=== PATIENT | female | born 1970 | race African-American/Black ===

== ENCOUNTER 2019-08-31 02:07 | Emergency (ER) | payer OTHER, SELFPAY ==
--- NOTE | ~2019-08-31 | XR_ITS ---
EXAMINATION: XR chest 2V 08/31/2019 03:52 INDICATION: Generalized chest pain, shortness of breath and fever. Cough. PROCEDURE: 2 view chest COMPARISON: Comparison to multiple prior studies sequentially, with oldest reviewed study dated 09/15. FINDINGS: The lungs are clear. The cardiomediastinal silhouette is within normal limits. There are no pleural effusions. There is no pneumothorax suspected. IMPRESSION: 1: NO ACUTE CARDIOPULMONARY DISEASE. Reviewed, dictated and finalized at location A.
[2019-08-31 02:15] VITALS: BP 160/74; PULSE 113; RESP 16; TEMP 36.5; O2SAT 100
--- NOTE | 2019-08-31 02:17 | ED.URI ---
HPI - URI/Sore Throat General Chief Complaint: Upper Respiratory Infection Stated Complaint: body aches, dean, cough, congestion Time Seen by Provider: 08/31/19 02:21 Source: patient and RN notes reviewed Mode of arrival: ambulatory Limitations: no limitations History of Present Illness HPI Narrative: A 48 y/o female presents to the ED with multiple URI symptoms beginning yesterday morning. She reports that she been having body aches, a DEAN, a yellow productive cough, lower back pain, leg cramps, SOB, sore throat, ear aches, and CP that radiates into her back since yesterday. She states that she took some Theraflu tonight which seemed to help alleviate her symptoms. 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 She denies any fever, chills, nasal congestion, rhinorrhea, N/V/D, or ABD pain. MD elicited complaint: other (Multiple) Pertinent past history: asthma Onset (ago): day(s) (yesterday) Description of mucous: yellow Relieving factors: OTC cold medicine (Theraflu) Context: sick contacts Associated symptoms: headache, sore throat, cough (yellow productive), chest pain (that radiates into her back), shortness of breath and other (body aches, lower back pain, leg cramps, and ear aches) Treatments prior to arrival: cold medicine (Theraflu) Related Data Allergies Allergy/AdvReac Type Severity Reaction Status Date / Time morphine Allergy Severe Unknown Verified 08/31/19 02:19 Contrast Media Allergy Mild Unknown Uncoded 08/31/19 02:19 Review of Systems Review of Systems: All systems reviewed & are unremarkable except as noted in HPI and below Constitutional: Constitutional: Reports body ache(s), Denies chills and Denies fever(s) ENT: Denies nasal congestion, Denies nasal discharge, Reports sore throat and Reports other (ear aches) Cardiovascular: Cardiovascular: Reports chest pain (that radiates into her back) Respiratory: Respiratory: Reports cough (yellow productive) and Reports dyspnea Gastrointestinal: Gastrointestinal: Denies abdominal pain, Denies diarrhea, Denies nausea and Denies vomiting Musculoskeletal: Musculoskeletal: Reports back pain (lower) and Reports muscle cramps (legs) Neurologic: Reports headache(s) PMFSH Past Medical History Medical History Asthma Surgical History Surgical History History of hysterectomy History of surgery on arm Previous section x3. Social History Social History (Updated 08/31/19 @ 02:33 by Nitin Duran) Smoking status: Never smoker Gender identity (if verbalized by the patient): Female Exam Const: General: cooperative, no acute distress and alert Nutritional Appearance: well nourished Orientation/consciousness: patient oriented x3 Limitations: no limitations HENMT: Mouth: Yes lip normal and Yes moist mucous membranes Resp: Effort & Inspection: normal respiratory effort Auscultation: clear to auscultation bilaterally Cardio: Rate: tachycardic Rhythm: regular rhythm Heart sounds: no murmurs GI: GI Palp: Yes Soft to palpation and No Tenderness to palpation present (GI) Auscultation: normal bowel sounds Skin: General skin exam: normal color Neuro: General: patient oriented x3 Cognition (Neuro): normal cognition Speech: normal speech Extrem: General: normal to inspection, full ROM and no clubbing, cyanosis or edema Psych: Mental Status: mental status grossly normal Affect: normal affect Attitude: cooperative Course Course Emergency Course: Patient feeling better after nebulizer treatment. Discomfort in chest subsided. Patient given IV fluids and Toradol with significant improvement in her symptoms overall. Patient positive for influenza A. No evidence of pneumonia on chest x-ray. No evidence of cardiac cause of patient's symptoms. Will discharge home with Tamiflu and inhaler. Vital Signs Vital signs: Vital Signs T
--- NOTE | 2019-08-31 02:22 | ECG_ITS ---
Measurements Intervals [place] Rate: 101 P: 42 IN: 154 QRS: 24 QRSD: 80 T: -11 QT: 261 QTc: 339 Interpretive Statements SINUS TACHYCARDIA NONSPECIFIC T-WAVE ABNORMALITY- ANT/INF LEADS BASELINE WANDER- V1-V2, V6 BORDERLINE ECG Electronically Signed On 08-31-2019 7:09:49 CDT by Vernon Scruggs D.O.
[2019-08-31] MEDS: LACTATED RINGERS 1,000 ML 999 ML IV CONT (02:31)
[2019-08-31] MEDS: KETOROLAC 30 MG/ML VIAL (*BKC) IV PUSH (02:32)
[2019-08-31 02:55] LABS: Basophils Percent Auto 0.6 % (0.2-1.2); Eosinophils Absolute Auto 0.1 K/mm3 (0-0.3); Eosinophils Percent Auto 1.2 % (0-4.4); Hematocrit 37.1 % (37.0-47.0); Hemoglobin 12.8 g/dL (12.0-15.0); Immature Granulocyte Absolute 0.02 K/mm3 (0.00-0.031); Immature Granulocyte Percent A 0.3 % (0-0.5); Lymphocytes Absolute Auto 0.93 K/mm3 (0.9-3.2); Lymphocytes Percent Auto 13.5 % (18.3-44.2); Mean Corpuscular HGB Conc 34.5 g/dl (32-36); Mean Corpuscular Hemoglobin 29.8 pg (26-34); Mean Corpuscular Volume 86.5 fl (80-100); Mean Platelet Volume 11.6 fl (7.4-10.4); Monocytes Absolute Auto 0.8 K/mm3 (0.1-0.6); Monocytes Percent Auto 11.9 % (2.6-8.5); Neutrophils Percent Auto 72.5 % (45.5-73.1); Platelet Count Result 223 k/mm3 (150-375); Red Blood Count 4.29 M/mm3 (4.2-5.4); Red Cell Distribution Width 12.5 % (11.5-14.5); White Blood Count 6.9 K/mm3 (4.5-10.0)
[2019-08-31 02:58] LABS: Alanine Aminotransferase 16 U/L (4-35); Alkaline Phosphatase 83 U/L (38-126); Aspartate Amino Transferase 21 U/L (14-36); Bilirubin,Total 0.9 mg/dL (0.2-1.3); Blood Urea Nitrogen 8 mg/dL (7-17); Calcium 8.8 mg/dL (8.4-10.2); Carbon Dioxide 22 mmol/L (22-30); Chloride 106 mmol/L (98-107); Estimated Glomerular Filt Rate > 60; Glucose 104 mg/dL (65-105); Potassium 3.3 mmol/L (3.4-5.0); Sodium 138 mmol/L (137-145)
[2019-08-31 03:10] LABS: Troponin I < 0.012 ng/mL (0.000-0.034)
[2019-08-31] MEDS: ALBUTEROL SULFATE NEB 2.5 MG/0.5 ML INH 5 MG INHALATION (03:13)
[2019-08-31 03:14] VITALS: PULSE 83; RESP 18
[2019-08-31] MEDS: IPRATROPIUM BR 0.02% INH SOLN 0.5 MG/2.5 ML VIAL INHALATION (03:14)
[2019-08-31 03:22] VITALS: PULSE 84; RESP 18
[2019-08-31 03:40] VITALS: BP 160/95; PULSE 87; RESP 16; TEMP 37.6; O2SAT 99
--- NOTE | 2019-08-31 04:13 | PC.NURSE ---
RESPIRATORY CALLED CONCERNING SPACER THAT WAS ORDERED AT 0243, SAID SHE WOULD BE DOWN.
[2019-08-31 04:16] VITALS: BP 132/88; PULSE 88; RESP 18; O2SAT 98
--- NOTE | 2019-08-31 04:29 | PC.NURSE ---
PT LEFT WITHOUT SPACER, SAID SHE JUST WANTS TO GO HOME AND WILL DO WITHOUT THE SPACER.
--- NOTE | 2019-08-31 04:29 | PC.NURSE ---
Addendum entered by Niya Reaves RN 08/31/19 04:31: RESPIRATORY CALLED CONCERNING SPACER. Original Note: PT WAITING TO LEAVE ON A SPACER FROM RESPIRATORY. SPACER ORDERED AT 0243
== END 2019-08-31 04:17 | disposition home or self-care (01) ==
PROVIDERS: Emergency Provider Emergency Medicine
DX: J10.1 Influenza due to other identified influenza virus with other respiratory manifestations (principal)
CPT/HCPCS: 36415; 71046; 80053; 84484; 85025; 87804; 93005; 94640; 96361; 96374; 99284; J1885; J7120

== ENCOUNTER 2019-09-06 12:44 | Emergency (ER) | payer OTHER, SELFPAY ==
--- NOTE | ~2019-09-06 | XR_ITS ---
XR chest 2V DATE: 09/06/2019 13:09 INDICATION: Shortness of breath, cough. Recent flu. History of asthma. TECHNIQUE: PA and lateral views COMPARISON: 08/30/2021 view chest FINDINGS: Normal heart size. No hilar or mediastinal enlargement. No pulmonary infiltrate or consolid ation, pleural effusion or pulmonary vascular congestion or pneumothorax. Mild degenerative change of the thoracic spine. IMPRESSION: No active cardiopulmonary disease Reviewed, dictated and finalized at location A.
[2019-09-06 12:48] VITALS: BP 143/91; PULSE 90; RESP 18; TEMP 36.1; O2SAT 100
--- NOTE | 2019-09-06 12:55 | ECG_ITS ---
Measurements Intervals [place] Rate: 87 P: 45 TN: 168 QRS: 26 QRSD: 81 T: -2 QT: 368 QTc: 444 Interpretive Statements SINUS RHYTHM NONSPECIFIC T-WAVE ABNORMALITY- INFERIOR LEADS BASELINE WANDER- I, II, III, AVR, AVL, AVF BORDERLINE ECG Electronically Signed On 09-06-2019 17:33:40 CDT by Vernon Scruggs D.O.
[2019-09-06 12:57] VITALS: PULSE 90
--- NOTE | 2019-09-06 12:58 | ED.SOB ---
HPI - SOB/Dyspnea General Chief Complaint: Shortness of Breath/Dyspnea Stated Complaint: i think i have pneumonia Time Seen by Provider: 09/06/19 12:56 Source: patient Mode of arrival: ambulatory Limitations: no limitations History of Present Illness HPI Narrative: A 48 y/o female presents to the ED with c/o SOB. Pt states that 1 week ago she started to have body aches, fever, and sneezing. At that time, the patient came to the ED and was diagnosed with Influenza A and prescribed Tamiflu on 08/31/19. She notes that the Tamiflu resolved the body aches, fever, and sneezing. On 09/03/19 she started to have a productive cough and SOB. Pt adds that she had a Chest X-Ray on 08/31/19 that came back negative, but thought she should be evaluated again for possible pneumonia. She states that she was seen at a clinic yesterday and was diagnosed with a UTI and was prescribed with Macrobid BID for 1 week. MD elicited complaint: shortness of breath Pertinent past history: other (Influenza A) Onset (ago): day(s) (3) Context: recent illness Timing: constant Associated symptoms: cough (Productive) Related Data Home Medications Medication Instructions Recorded Confirmed nitrofurantoin monohyd/m-cryst 100 mg PO Q12H 09/06/19 09/06/19 [Macrobid] Allergies Allergy/AdvReac Type Severity Reaction Status Date / Time morphine Allergy Severe Unknown Verified 09/06/19 12:54 Contrast Media Allergy Mild Unknown Uncoded 09/06/19 12:54 Review of Systems Review of Systems: All systems reviewed & are unremarkable except as noted in HPI and below Constitutional: Constitutional: Denies body ache(s) and Denies fever(s) ENT: Denies other (Sneezing) Respiratory: Respiratory: Reports cough (Productive) and Reports dyspnea PMFSH Past Medical History Medical History (Updated 09/07/19 @ 00:00 by Shon Childs) Arthritis Asthma Hemorrhoid Influenza A Kidney stones Migraine UTI (urinary tract infection) Surgical History Surgical History (Updated 09/06/19 @ 13:02 by Andria Javed) History of dilatation and curettage History of hysterectomy History of surgery on arm Left arm reconstruction History of tubal ligation Previous section x3. Social History Social History (Updated 09/06/19 @ 13:23 by Andria Chauhan Smoking status: Never smoker Alcohol intake: current Alcohol use details: Occasional Gender identity (if verbalized by the patient): Female Exam Narrative: Exam Narrative: General appearance: Well-developed, well-nourished Skin: Normal color Head: Normocephalic, nontraumatic Eyes: Clear conjunctiva ENT: Oropharynx normal, ears normal, nose normal Neck: Supple, nontender Chest and respiratory: Airway patent, no respiratory distress, no accessory muscle use Heart: Regular rate/rhythm Abdomen: Soft, nontender, no organomegaly, quiet bowel sounds Vascular: Normal peripheral pulses, normal capillary refill. 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
[2019-09-06 13:09] LABS: Basophils Percent Auto 0.5 % (0.2-1.2); Eosinophils Absolute Auto 0.1 K/mm3 (0-0.3); Eosinophils Percent Auto 2.7 % (0-4.4); Hematocrit 40.2 % (37.0-47.0); Hemoglobin 13.6 g/dL (12.0-15.0); Immature Granulocyte Absolute 0.01 K/mm3 (0.00-0.031); Immature Granulocyte Percent A 0.2 % (0-0.5); Lymphocytes Absolute Auto 2.04 K/mm3 (0.9-3.2); Lymphocytes Percent Auto 50.4 % (18.3-44.2); Mean Corpuscular HGB Conc 33.8 g/dl (32-36); Mean Corpuscular Hemoglobin 29.6 pg (26-34); Mean Corpuscular Volume 87.6 fl (80-100); Mean Platelet Volume 11.4 fl (7.4-10.4); Monocytes Absolute Auto 0.3 K/mm3 (0.1-0.6); Monocytes Percent Auto 7.2 % (2.6-8.5); Neutrophils Absolute Auto 1.6 K/mm3 (1.3-6.7); Platelet Count Result 219 k/mm3 (150-375); Red Blood Count 4.59 M/mm3 (4.2-5.4); Red Cell Distribution Width 12.2 % (11.5-14.5); White Blood Count 4.1 K/mm3 (4.5-10.0)
[2019-09-06 13:20] LABS: Blood Urea Nitrogen 11 mg/dL (7-17); Calcium 8.8 mg/dL (8.4-10.2); Carbon Dioxide 27 mmol/L (22-30); Chloride 105 mmol/L (98-107); Estimated CRCL calculation 95 ml/min; Estimated Glomerular Filt Rate > 60; Glucose 103 mg/dL (65-105); Potassium 3.4 mmol/L (3.4-5.0); Sodium 140 mmol/L (137-145)
[2019-09-06 13:42] VITALS: BP 147/92; PULSE 79; RESP 20; O2SAT 100
[2019-09-06 14:39] VITALS: BP 145/82; PULSE 70; RESP 18; O2SAT 100
== END 2019-09-06 14:40 | disposition home or self-care (01) ==
LOC: ANHED 14:17
PROVIDERS: Emergency Provider Emergency Medicine
DX: J10.1 Influenza due to other identified influenza virus with other respiratory manifestations (principal); N39.0 Urinary tract infection, site not specified; M19.90 Unspecified osteoarthritis, unspecified site; J45.909 Unspecified asthma, uncomplicated; Z87.440 Personal history of urinary (tract) infections; R94.31 Abnormal electrocardiogram [ECG] [EKG]
CPT/HCPCS: 36415; 71046; 80048; 85025; 93005; 99284

== ENCOUNTER 2019-09-19 15:22 | Observation (INO) | payer OTHER, SELFPAY ==
[2019-09-19] VITALS (10 sets, daily range): BP systolic 64–150; BP diastolic 28–97; PULSE 79–124; RESP 9–25; TEMP 36.3–37.3; O2SAT 95–100; BMI 40.1
--- NOTE | ~2019-09-19 | CT_ITS ---
EXAMINATION: CTA chest PE protocol DATE: 09/20/2019 20:59 INDICATION: Shortness of breath. TECHNIQUE: Computed tomography angiography (CTA) of the chest was performed with 100 mL Omnipaque-350 intravenous contrast timed to evaluate the pulmonary arteries. Coronal maximum intensity projection 3D-reconstructions were created by the technologist. Automated exposure control and iterative reconst ruction technique were employed. The dose-length product was 560.64 mGy-cm. COMPARISON: None. FINDINGS: The lungs demonstrate mild atelectasis. There are airspace and groundglass opacities in lat erobasal segment right lower lobe. No pleural effusion. The heart size is normal. No pericardial effu geovanna. There is a pulmonary embolus in laterobasal segment right lower lobe. There is a pulmonary embo sosa in apicoposterior segment left upper lobe. There is mild thoracic spondylosis. IMPRESSION: 1. Pulmonary emboli and laterobasal segment right lower lobe and apicoposterior segment left upper lo be. Sensitivity for additional emboli is mildly decreased by motion artifact. 2. Airspace and groundglass opacities in laterobasal segment right lower lobe, consistent with infarc t. Reviewed, dictated and finalized at location A. IMPRESSION: 1. Pulmonary emboli and laterobasal segment right lower lobe and apicoposterior segment left upper lobe. Sensitivity for additional emboli is mildly decreased by motion artifact. 2. Airspace and groundglass opacities in laterobasal segment right lower lobe, consistent with infarct.
--- NOTE | ~2019-09-19 | NM_ITS ---
EXAMINATION: NM lung vent and perfusion DATE: 09/19/2019 17:24 INDICATION: Chest pain. Shortness of breath. TECHNIQUE: The patient breathed 13.0 mCi xenon-133 for ventilation images. 4.97 mCi Tc-99m MAA was ad ministered intravenously for perfusion images. Scintigraphic images of the chest were obtained. COMPARISON: Chest 2 views 09/19/2019 FINDINGS: The single breath ventilation image demonstrates small defects at the lung bases and lung apices. Leander tilation washout images show no retention. Perfusion images show small defects in the lower lobes. T here is a moderate-sized defect in the posterobasal segment left lower lobe.. ] IMPRESSION: 1. Intermediate probability for pulmonary embolism. Reviewed, dictated and finalized at location A.
--- NOTE | ~2019-09-19 | XR_ITS ---
EXAMINATION: XR chest 2V DATE: 09/19/2019 16:12 INDICATION: Shortness of breath, cough, right-sided chest pain. TECHNIQUE: Frontal and lateral views of the chest were obtained. COMPARISON: Chest 2 views 09/06/2019 FINDINGS: There is mild atelectasis in the lower lung zones. There are small pleural effusions. No pn eumothorax. The heart size is normal. IMPRESSION: 1. Small pleural effusions. 2. Mild atelectasis in the lower lung zones. Reviewed, dictated and finalized at location A.
--- NOTE | ~2019-09-19 | US_ITS ---
EXAMINATION: US venous doppler [facility] DATE: 09/20/2019 10:51 INDICATION: Pulmonary embolism. TECHNIQUE: Grayscale ultrasound images without and with compression and Doppler ultrasound images of the bilateral lower extremity veins were obtained. COMPARISON: None. FINDINGS: The visualized portions of right common femoral vein, profunda (deep) femoral vein, femoral vein, pop liteal vein, posterior tibial veins, peroneal veins, gastrocnemius vein and greater saphenous vein ou tflow are patent. The visualized portions of left common femoral vein, profunda femoral vein, femoral vein, popliteal v ein, posterior tibial veins, peroneal veins, gastrocnemius vein and greater saphenous vein outflow ar e patent. IMPRESSION: 1. No deep venous thrombosis in either lower limb. Reviewed, dictated and finalized at location A.
--- NOTE | 2019-09-19 15:51 | ED.CHESTPAIN ---
HPI - Chest Pain General Chief Complaint: Shortness of Breath/Dyspnea Stated Complaint: sob, r side pain Time Seen by Provider: 09/19/19 15:39 Source: patient and RN notes reviewed Mode of arrival: ambulatory Limitations: no limitations History of Present Illness HPI narrative: Pt is a 48 y/o female with a Hx of asthma, who presents to the ED with c/o rt lateral chest pain starting last night. She describes her pain as sharp, and notes that her pain radiates into her rt shoulder and into the rt side of her neck. Pt states that her pain has been constant since it first began. She notes that her pain is aggravated with movement. Pt reports SOB and nausea accompanying her pain, but denies any vomiting, diaphoresis, LE edema, calf pain, ABD pain, or dysuria. She denies having any Hx of DVT or PE. Pt states that she hasn't had any recent travel. MD complaint: chest pain Pertinent past history: asthma Onset (ago): day(s) (1) Timing of current episode: constant Pain location: right chest (rt lateral chest) Pain radiation: right shoulder and other (rt side of neck) Quality: sharp Exacerbating factors: movement Associated symptoms: nausea and dyspnea Treatment prior to arrival: none Related Data Allergies Allergy/AdvReac Type Severity Reaction Status Date / Time morphine Allergy Severe Unknown Verified 09/19/19 15:42 Contrast Media Allergy Mild Unknown Uncoded 09/19/19 15:42 Review of Systems Review of Systems: All systems reviewed & are unremarkable except as noted in HPI and below Cardiovascular: Cardiovascular: Reports chest pain (rt lateral chest pain radiating into rt shoulder and rt side of neck), Denies diaphoresis and Denies leg edema Respiratory: Respiratory: Reports dyspnea Gastrointestinal: Gastrointestinal: Denies abdominal pain, Reports nausea and Denies vomiting Genitourinary: Genitourinary: Denies dysuria Musculoskeletal: Musculoskeletal: Denies other (calf pain) [facility] Past Medical History Medical History Arthritis Asthma Hemorrhoid Influenza A Kidney stones Migraine UTI (urinary tract infection) Surgical History Surgical History History of dilatation and curettage History of hysterectomy History of surgery on arm Left arm reconstruction History of tubal ligation Previous section x3. Social History Social History Smoking status: Never smoker Alcohol intake: current Gender identity (if verbalized by the patient): Female Exam Narrative: Exam Narrative: GENERAL: Uncomfortable-appearing, well-nourished, and in no acute distress. HEAD: Normocephalic, atraumatic. ENT: Mucous membranes moist. NECK: Supple. CHEST: Clear to auscultation. No respiratory distress. TTP right lateral chest wall and right trapezius. HEART: Tachycardic and regular. Normal peripheral pulses. ABDOMEN: Soft, nontender, nondistended. EXTREMITIES: Normal range of motion. No edema. SKIN: Warm, dry, no rash. NEURO: Alert and oriented x3. PSYCH: Normal mood and affect. Course Consultations Consultation #1: Discussed case with CHECK PROCESSOR to hospitalist, Lizet Li. Accepted admission. Date: 09/19/19 Time: 18:05 Vital Signs Vital signs: Vital Signs Temperature 97.4 F L 09/19/19 15:27 Pulse Rate 121 H 09/19/19 15:27 Respiratory Rate 22 H 09/19/19 15:27 Blood Pressure 132/92 H 09/19/19 15:27 Pulse Oximetry 99 09/19/19 15:27 Temperature 97.8 F 09/19/19 15:38 Pulse Rate 102 H 09/19/19 18:39 Respiratory Rate 25 H 09/19/19 18:39 Blood Pressure 131/89 09/19/19 18:39 Pulse Oximetry 96 09/19/19 18:39 MDM - Chest Pain Lab Data Result diagrams: 09/19/19 16:01 09/19/19 16:01 Labs: Lab Results 09/19/19 09/19/19 09/19/19 Range/Units 16:01 16:01 16:01 WBC 10.2 H (4.5-10.0) K/mm3 RBC 4.41 (4.2-5.4) M/
--- NOTE | 2019-09-19 15:58 | ECG_ITS ---
Measurements Intervals [place] Rate: 113 P: 40 GA: 146 QRS: 20 QRSD: 84 T: -60 QT: 330 QTc: 453 Interpretive Statements SINUS TACHYCARDIA NONSPECIFIC T-WAVE ABNORMALITY- DIFFUSE LEADS BASELINE WANDER- V1-V2 ABNORMAL ECG Electronically Signed On 09-20-2019 7:43:49 CDT by Vernon Scruggs D.O.
--- NOTE | 2019-09-19 16:06 | PC.NURSE ---
PT TO XRAY IN STRETCHER PER CONVOLUTE TUBE WINDER, WILL MEDICATE PER PROVIDER ORDER UPON HER RETURN.
[2019-09-19 16:08] LABS: Basophils Absolute Auto 0.1 K/mm3 (0.0-0.1); Basophils Percent Auto 0.5 % (0.2-1.2); Eosinophils Absolute Auto 0.2 K/mm3 (0-0.3); Eosinophils Percent Auto 1.6 % (0-4.4); Hemoglobin 13.1 g/dL (12.0-15.0); Immature Granulocyte Absolute 0.02 K/mm3 (0.00-0.031); Immature Granulocyte Percent A 0.2 % (0-0.5); Lymphocytes Absolute Auto 2.12 K/mm3 (0.9-3.2); Lymphocytes Percent Auto 20.8 % (18.3-44.2); Mean Corpuscular HGB Conc 33.6 g/dl (32-36); Mean Corpuscular Hemoglobin 29.7 pg (26-34); Mean Corpuscular Volume 88.4 fl (80-100); Mean Platelet Volume 11.4 fl (7.4-10.4); Monocytes Absolute Auto 0.5 K/mm3 (0.1-0.6); Monocytes Percent Auto 5.2 % (2.6-8.5); Neutrophils Absolute Auto 7.3 K/mm3 (1.3-6.7); Neutrophils Percent Auto 71.7 % (45.5-73.1); Platelet Count Result 285 k/mm3 (150-375); Red Blood Count 4.41 M/mm3 (4.2-5.4); Red Cell Distribution Width 12.7 % (11.5-14.5); White Blood Count 10.2 K/mm3 (4.5-10.0)
[2019-09-19 16:18] LABS: Partial Thromboplastin Time 29.2 SECONDS (22.3-36.8); Prothrombin Time 12.8 Seconds (11.1-14.7)
[2019-09-19 16:19] LABS: Blood Urea Nitrogen 9 mg/dL (7-17); Calcium 9.2 mg/dL (8.4-10.2); Carbon Dioxide 23 mmol/L (22-30); Chloride 103 mmol/L (98-107); Estimated CRCL calculation 84 ml/min; Estimated Glomerular Filt Rate > 60; Glucose 141 mg/dL (65-105); Potassium 3.6 mmol/L (3.4-5.0); Sodium 137 mmol/L (137-145)
[2019-09-19 16:31] LABS: Troponin I < 0.012 ng/mL (0.000-0.034)
--- NOTE | 2019-09-19 17:01 | PC.NURSE ---
PT TO NUCLEAR MED AT THIS TIME PER STRETCHER.
[2019-09-19] MEDS: ENOXAPARIN 100 MG/ML SYRINGE 109 MG SUB-Q (18:16)
--- NOTE | 2019-09-19 19:17 | PC.NURSE ---
PT REPORT GIVEN TO PETROS STEPHENSON AT THIS TIME.
--- NOTE | 2019-09-19 20:07 | ADMGEN ---
This patient, Johanna Burnett, was admitted to 3 [facility] Surg Room 326-01. Patient/family oriented to hospital policies and general routines including ID bracelet, bed and alarms, visiting hours, pain management, procedures, bathroom and other care routines, personal items, smoking policy, room service/diet, and visiting hours. Valuables list has been completed. Information on how to activate the Rapid Response Team has been discussed. Patient/Family are encouraged to report perceived risks to care and to ask questions if they do not understand what they are told or what they should do.
--- NOTE | 2019-09-19 22:02 | PM.IMHP ---
H&P: HPI History of Present Illness Chief complaint: pulmonary embolism Narrative: Johanna Burnett is a 48 year old female who came to the emergency room today for right shoulder pain and right lower rib pain. The patient has been sick since August 29. She came here on August the and was diagnosed with influenza A. She was given inhaler and Tamiflu at that time. She had body aches at that time patient stated that she has just been lying more frequently she has not done anything home. She is fatigued. The patient stated she has not done anything extraneous recently nor has she felt like she slept on her arm wrong. She said she ate a big meal feels sleepy yesterday and thought maybe she had indigestion she had right shoulder pain and right lower rib pain she thought maybe this is some gas she took some Gas-X and some Tums no relief. She has had no prior history of any DVTs or PEs. The patient stated when she takes a deep breath it feels like something stabbing her in the right lower rib. Her breath away and the pain is worse with movement. She is more short of breath with movement. No cough no fever no chills. No nausea no vomiting. No recent travel or any recent exposure to anybody that is sick. The patient stated that she is a DOn of a alf but has not been back to work since the quarantine had started. Patient has a severe reaction to CT contrast dye but has been premedicated in the past after her allergic reaction and has done well with the CT diastolic she is premedicated. A V/Q scan was read as intermediate probability for a PE. The patient does not smoke and is not on any control. [place] chest x-ray was read as small pleural effusions. Mild atelectasis in lower lung zones. Potassium is 3.3 today. Her pain is reproducible when touching the right shoulder and the right lower rib. Date of service 09/19/2019 Review of Systems Review of Systems: Narrative: No fever no chills no body aches. Since earlier this month when patient was diagnosed with influenza she just has not had any strength and has not been very mobile. All systems reviewed & are unremarkable except as noted in HPI and below Constitutional: Constitutional: Reports as per HPI and Reports no additional constitutional complaints Eyes: Eyes: Reports as per HPI and Reports no additional eye complaints ENT: Reports system reviewed and no additional complaints, except as documented and Reports Normal hearing present Cardiovascular: Cardiovascular: Reports no additional cardiovascular complaints Respiratory: Respiratory: Reports no additional respiratory complaints and Reports no additional respiratory complaints Gastrointestinal: Gastrointestinal: Reports as per HPI and Reports no additional gastrointestinal complaints Musculoskeletal: Musculoskeletal: Reports no additional musculoskeletal complaints Integumentary/Breasts: Skin/Breast: Reports system reviewed and no additional complaints, except as docu and Reports as per HPI Neurologic: Reports system reviewed and no additional complaints, except as documented, Reports as per HPI and Reports Normal hearing present Psychiatric: Psychiatric: Reports no additional psychiatric complaints and Reports as per HPI Endocrine: Endocrine: Reports no additional endocrine complaints Hematologic/Lymphatic: Hematologic/Lymphatic: Reports no additional hematologic/lymphatic complaints Allergic/Immunologic: Allergic/Immunologic: Reports no additional allergic/immunologic complaints [facility] Past Medical History Medical History (Updated 09/19/19 @ 22:08 by Lizet Li NP) Arthritis Asthma Hemorrhoid Influenza A Kidney stones Migraine UTI (urinary tract infection) Surgical History Surgical History (Updated 09/19/19 @ 22:09 by Lizet Li NP) History of dilatation and curettage History of hysterectomy History of surgery on arm Left arm reconstruction x4 History of tubal ligation Previous aletha
[2019-09-19] MEDS: KETOROLAC 15 MG/ML VIAL (*BKC) IV PUSH (22:42)
[2019-09-19] MEDS: FUROSEMIDE 20 MG TABLET PO (22:43)
[2019-09-19] MEDS: ACETAMINOPHEN 325 MG TABLET 650 MG PO (22:49)
[2019-09-19] MEDS: POTASSIUM CHLORIDE 20 MEQ TABLET PO (23:40)
[2019-09-20] VITALS (8 sets, daily range): BP systolic 133–142; BP diastolic 74–86; PULSE 84–112; RESP 16–18; TEMP 36.7–37.1; O2SAT 95–99
[2019-09-20 05:54] LABS: Basophils Absolute Auto 0.1 K/mm3 (0.0-0.1); Basophils Percent Auto 0.5 % (0.2-1.2); Eosinophils Absolute Auto 0.1 K/mm3 (0-0.3); Eosinophils Percent Auto 1.4 % (0-4.4); Hematocrit 35.9 % (37.0-47.0); Immature Granulocyte Absolute 0.03 K/mm3 (0.00-0.031); Immature Granulocyte Percent A 0.3 % (0-0.5); Lymphocytes Absolute Auto 3.16 K/mm3 (0.9-3.2); Lymphocytes Percent Auto 33.9 % (18.3-44.2); Mean Corpuscular HGB Conc 33.4 g/dl (32-36); Mean Corpuscular Hemoglobin 29.3 pg (26-34); Mean Corpuscular Volume 87.8 fl (80-100); Mean Platelet Volume 11.2 fl (7.4-10.4); Monocytes Absolute Auto 0.7 K/mm3 (0.1-0.6); Monocytes Percent Auto 7.3 % (2.6-8.5); Neutrophils Absolute Auto 5.3 K/mm3 (1.3-6.7); Neutrophils Percent Auto 56.6 % (45.5-73.1); Platelet Count Result 258 k/mm3 (150-375); Red Blood Count 4.09 M/mm3 (4.2-5.4); Red Cell Distribution Width 12.5 % (11.5-14.5); White Blood Count 9.3 K/mm3 (4.5-10.0)
[2019-09-20 06:19] LABS: Alanine Aminotransferase 10 U/L (4-35); Albumin Level 3.6 g/dL (3.5-5.1); Alkaline Phosphatase 73 U/L (38-126); Aspartate Amino Transferase 15 U/L (14-36); Bilirubin,Total 1.2 mg/dL (0.2-1.3); Blood Urea Nitrogen 9 mg/dL (7-17); Calcium 8.9 mg/dL (8.4-10.2); Carbon Dioxide 26 mmol/L (22-30); Chloride 106 mmol/L (98-107); Estimated CRCL calculation 77 ml/min; Estimated Glomerular Filt Rate > 60; Glucose 95 mg/dL (65-105); Lipase 19 U/L (23-300); Magnesium 2.2 mg/dL (1.6-2.3); Potassium 3.9 mmol/L (3.4-5.0); Sodium 136 mmol/L (137-145)
[2019-09-20] MEDS: ACETAMINOPHEN 325 MG TABLET 650 MG PO ×2 (09:50→21:06)
[2019-09-20] MEDS: ENOXAPARIN 120 MG/0.8 ML SYRINGE 108 MG SUB-Q ×2 (09:51→18:41)
[2019-09-20] MEDS: CHOLECALCIFEROL 1,000 UNIT TABLET 2000 UNITS PO (09:52)
[2019-09-20] MEDS: predniSONE 40 MG, predniSONE 10 MG 50 MG PO ×3 (09:52→20:00)
[2019-09-20 12:09] LABS: D Dimer 0.35 ug/mL (<0.48)
--- NOTE | 2019-09-20 15:51 | ECG_ITS ---
Measurements Intervals [place] Rate: 100 P: 36 DC: 161 QRS: 32 QRSD: 86 T: -15 QT: 349 QTc: 452 Interpretive Statements SINUS TACHYCARDIA NONSPECIFIC T-WAVE ABNORMALITY- INFERIOR LEADS BORDERLINE ECG Electronically Signed On 09-21-2019 7:15:22 CDT by Vernon Scruggs D.O.
--- NOTE | 2019-09-20 15:53 | PM.IMPN ---
Progress Note: A&P Assessment and Plan (1) Pulmonary embolism: Qualifiers: Acute cor pulmonale presence: unspecified Chronicity: acute Pulmonary embolism type: unspecified Qualified Code(s): I26.99 - Other pulmonary embolism without acute cor pulmonale Code(s): I26.99 - Other pulmonary embolism without acute cor pulmonale Status: Acute Assessment and Plan: VQ scan in the ED revelaed intermediate probability for PE. The pt has pleuritic chest pain, sinus tachycardia, and dyspnea. Her pleuritic pain has improved today. She endorses dyspnea with activity. She reports hx of contrast allergy but states that she has tolerated multiple CTs with contrast in the past with premedication prophylaxis. She is requesting to proceed with CTA. Venous dopplers are negative. Continue lovenox SQ Hypercoagulable workup is pending Echo pending CTA pending. Pt will be premedicated with benedryl and prednisone. (2) Hypokalemia: Code(s): E87.6 - Hypokalemia Status: Acute Assessment and Plan: Potassium reviewed and 3.9 today. Will continue to monitor (3) Pleural effusion: Code(s): J90 - Pleural effusion, not elsewhere classified Status: Acute Assessment and Plan: Pt received 1 dose of lasix PO yesterday. Lungs are clear. Echo pending (4) Asthma: Code(s): J45.909 - Unspecified asthma, uncomplicated Status: Chronic Assessment and Plan: Continue albuterol PRN (5) Chest pain: Code(s): R07.9 - Chest pain, unspecified Status: Acute Assessment and Plan: Pt reports 4 episodes of an electric shock feeling today in the right chest while she is resting. The pain she describes is atypical for cardiac pain. Stat EKG and troponin Echo pending Will continue to monitor for sx Subjective Date/time seen: 09/20/19 15:53 Interval history: Mrs. Burnett is seen and examined at bedside. No acute events were reported overnight. She reports that her right shoulder and right subcostal pain is better today. She endorses dyspnea with activity but does state that this has improved. She notes 4 episodes of brief chest discomfort. She states that it is right sided and occurs while she is resting. She states that it is very brief and feels like she is being shocked. She reports mild nausea since she had influenza. She reports that her appetite is good. She denies cough. Review of Systems Review of Systems: All systems reviewed & are unremarkable except as noted in HPI and below Exam Narrative: Exam Narrative: General: Well-developed female sitting in the semi-fowlers position eating. She is in no acute distress. HEENT: Normocephalic and atraumatic. Conjunctivae and lids normal. PERRL. EOMI. Mucous membranes are moist. Posterior pharynx without erythema or exudate. Neck: Supple. No lymphadenopathy or masses. Cardiac: Tachycardia. Rhythm regular. S1 and S2 normal. No murmur auscultated. Lungs: Normal respiratory effort. No accessory muscle use. Clear to auscultation bilaterally. Abdomen: Bowel sounds are active. Abdomen is soft, non-distended, and non-tender. Musculoskeletal: No joint erythema, swelling, or tenderness. ROM within normal limits. Extremities: No significant lower extremity edema. Palpable DP and PT bilaterally. Neurological: Alert and oriented x3. No focal neurological deficits noted. Speech is clear. Skin: Warm and dry. Psychiatric: Judgment and insight intact. Mood and affect normal. Objective Data Vital Signs Vital Signs: Vital Signs - 24 hr 09/19/19 16:03 09/19/19 17:32 09/19/19 17:59 Temperature Pulse Rate 115 H 100 79 Respiratory Rate 18 24 H 9 L Blood Pressure 150/87 H 141/90 H 64/28 L Pulse Oximetry 98 95 100 09/19/19 18:39 09/19/19 19:26 09/19/19 19:52 Temperature Pulse Rate 102 H 111 H 110 H Respiratory Rate 25 H 22 H 25 H Blood Pressure 131/89 126/77 129/97
[2019-09-20 16:43] LABS: Troponin I < 0.012 ng/mL (0.000-0.034)
[2019-09-21] VITALS (7 sets, daily range): BP systolic 134–142; BP diastolic 81–84; PULSE 85–96; RESP 16–20; TEMP 36.5–36.7; O2SAT 96–98
--- NOTE | 2019-09-21 | ECHO_ITS ---
Patient Info Name: Johanna Burnett Age: 48 years : 1970 Gender: Female Ht: 65 in Wt: 241 lbs BSA: 2.29 m2 HR: 88 bpm BP: 142 / 81 mmHg Heart Rhythm: Sinus Rhythm Technical Quality: Good Exam Date: 09/21/2019 9:41 AM Exam Location: [facility] Patient Status: Inpatient Admit Date: 09/19/2019 Staff Ordering Physician: Lizet Li NP [employer] Concrete Batcher: lJ Gunter RDCS Attending Provider: Bna Lane PA-C Referring Physician: Jen NASCIMENTO; Exam Type: CA echo doppler color flow Study Info Indications I26.99 - Other pulmonary embolism without acute cor pulmonale Complete two-dimensional, color flow and Doppler transthoracic echocardiogram is performed. Strain analysis performed. History/Risk Factors Pulmonary embolism; chest pain. Summary 1. Essentially unremarkable echocardiogram. 2. No findings that indicate right ventricular pressure overload in patient with P E. Left Ventricle Left ventricular chamber dimension is normal. Left ventricular systolic function is normal, estimated at 65-70%. The left ventricular diastolic function is normal. Right Ventricle Right ventricular chamber dimension is normal. Left Atria Left atrial chamber dimension is normal. Right Atria Right atrial chamber dimension is normal. Aortic Valve The aortic valve is normal. Pulmonic Valve The pulmonic valve is not well visualized. Mitral Valve The mitral valve has normal leaflets. Tricuspid Valve The tricuspid valve leaflets are normal. Pericardium/Pleural The pericardium appears normal. Aorta The aortic root size at the sinus of Valsalva is normal. Left Ventricular Outflow Tract Name Value Normal LVOT 2D LVOT Diameter 2.0 cm LVOT Doppler LVOT Peak Gradient 4 mmHg LVOT Mean Gradient 2 mmHg LVOT VTI 15 cm LVOT VTI/AV VTI Ratio 0.7 LVOT Stroke Volume 46 ml LVOT CO 4.2 l/min LVOT CI 1.9 l/min/m2 Mitral Valve Name Value Normal MV Doppler MV Decel [place] 425 cm/s2 MV PHT 52 ms MV Area (PHT) 4.2 cm2 4.0-5.0 MV Diastolic Function MV E Peak Velocity 77 cm/s MV A Peak Velocity 54 cm/s MV E/A 1.4 MV Decel Time 180 ms MV Annular TDI MV E/e' (Septal) 7.2 <=8.0 MV E/e' (Lateral)
[2019-09-21] MEDS: ENOXAPARIN 120 MG/0.8 ML SYRINGE 108 MG SUB-Q (05:41)
[2019-09-21] MEDS: CHOLECALCIFEROL 1,000 UNIT TABLET 2000 UNITS PO (09:21)
--- NOTE | 2019-09-21 10:48 | PM.IMPN ---
Progress Note: A&P Assessment and Plan (1) Pulmonary embolism: Qualifiers: Acute cor pulmonale presence: unspecified Chronicity: acute Pulmonary embolism type: unspecified Qualified Code(s): I26.99 - Other pulmonary embolism without acute cor pulmonale Code(s): I26.99 - Other pulmonary embolism without acute cor pulmonale Status: Acute Assessment and Plan: VQ scan revealed intermediate probability of PE. Venous doppler was negative for DVT. Chest CTA revealed PE in the laterobasal segment of the right lower lobe and the apicoposterior segment of the left upper lobe. She is on lovenox SQ at this time. Suspect that this was provoked by immobility over the past month since she was sick with influenza and reports decreased activity during that time. Continue lovenox SQ and transition to PO regimen at discharge Care coordination consult for DOAC therapy at discharge Hypercoagulable workup is pending Echo completed EF normal with no evidence of right heart strain (2) Hypokalemia: Code(s): E87.6 - Hypokalemia Status: Resolved Assessment and Plan: Stable. Will continue to monitor (3) Pleural effusion: Code(s): J90 - Pleural effusion, not elsewhere classified Status: Resolved Assessment and Plan: Pt repceived 1 dose of IV lasix 09/18. CTA PE reveals no evidence of pleural effusion and lungs are clear. Echo pending (4) Asthma: Code(s): J45.909 - Unspecified asthma, uncomplicated Status: Chronic Assessment and Plan: Pt had diffuse wheezes on auscultation. Begin duo nebs Continue albuterol PRN at discharge Recommend pulmonary function testing outpatient (5) Chest pain: Code(s): R07.9 - Chest pain, unspecified Status: Resolved Assessment and Plan: Echo revealed sinus tachycardia and non-specific T wave abnormality, unchanged from prior echo. Troponin negative. The pain is very atypical for ACS. I suspect that her pain is due to her PE and has improved today. Will continue to monitor for sx (6) Hypertension: Code(s): I10 - Essential (primary) hypertension Status: Acute Assessment and Plan: The patient's BP has been elevated 140-150s/70-80s during her stay. She reports she has not followed-up with a PCP recently. She reports that her BP is elevated when she is hospitalized but is otherwise WNL. Pt should keep a BP log and take this to her appt with her PCP Subjective Date/time seen: 09/21/19 10:48 Interval history: Mrs. Burnett was seen and examined at bedside. She is being treated for acute PE. She reports that her pleuritic chest pain radiating into the right back has improved. She also notes mild upper right shoulder discomfort which is improving. She continues to endorse occasional dyspnea with activity. She denies nausea, vomiting, and abdominal pain. She denies headaches, dizziness, and lightheadedness. She is tolerating PO intake well. Review of Systems Review of Systems: All systems reviewed & are unremarkable except as noted in HPI and below Exam Narrative: Exam Narrative: General: Pleasant and well-developed female. She is sitting in the semi-fowlers position resting and in no acute distress. HEENT: Normocephalic and atraumatic. PERRL. EOMI. Mucous membranes are moist. No posterior pharyngeal exudate or erythema. Neck: Supple. No lymphadenopathy or masses. Cardiac: Regular rate and rhythm. No murmur auscultated. Lungs: Normal respiratory effort. No accessory muscle use. Lungs are clear to auscultation bilaterally. Abdomen: Bowel sounds are active. Abdomen is soft, non-distended, and non-tender. Musculoskeletal: ROM within normal limits. No joint erythema or warmth. Extremities: No lower extremity edema. Palpable DP and PT bilaterally. Neurological: Alert and oriented x3. No focal neurological deficits noted. Speech is clear. Skin:
[2019-09-21] MEDS: LEVALBUTEROL NEB 1.25 MG/3 ML 0.63 MG INHALATION (14:22)
[2019-09-21] MEDS: IPRATROPIUM BR 0.02% INH SOLN 0.5 MG/2.5 ML VIAL INHALATION (14:22)
--- NOTE | 2019-09-21 16:34 | PM.DS ---
DS: Diagnosis Admitting Diagnosis Admitting Diagnosis: Other pulmonary embolism without acute cor pulmonale Discharge Diagnosis (1) Pulmonary embolism: Qualifiers: Acute cor pulmonale presence: unspecified Chronicity: acute Pulmonary embolism type: unspecified Qualified Code(s): I26.99 - Other pulmonary embolism without acute cor pulmonale Code(s): I26.99 - Other pulmonary embolism without acute cor pulmonale Status: Acute (2) Hypokalemia: Code(s): E87.6 - Hypokalemia Status: Resolved (3) Pleural effusion: Code(s): J90 - Pleural effusion, not elsewhere classified Status: Resolved (4) Asthma: Code(s): J45.909 - Unspecified asthma, uncomplicated Status: Chronic (5) Chest pain: Code(s): R07.9 - Chest pain, unspecified Status: Resolved (6) Hypertension: Code(s): I10 - Essential (primary) hypertension Status: Acute DS: Summary Hospital Course Reason for hospitalization: Mrs. Burnett is a 48 y.o. female with PMH significant for asthma who presented to the ED with c/o right shoulder and right lower rib pain, worse with deep inspiration, and dyspnea. She was diagnosed with influenza on August 29 and has been inactive since then since she was not feeling well. Due to a contrast allergy, she underwent VQ scan in the ED which revealed intermediate probability of PE. She was admitted to the hospitalist service in order to undergo pre medication prophylaxis for CTA. She was treated with lovenox SQ for her PE. Venous doppler was performed and was negative for DVT. Chest CTA revealed PE in the laterobasal segment of the right lower lobe and the apicoposterior segment of the left upper lobe. Her sx began to improve significantly. A hypercoagulable workup was performed and is pending. Echo was performed and revealed normal systolic function with EF 65-70% and normal diastolic function without evidence of right ventricular pressure overload. She was discharged on eliquis and instructed to follow-up with a PCP within 1-2 weeks for additional refills. She is in the process of establishing care with a new PCP. her BP was elevated during her stay. She stated that this is normal for her when she is hospitalized and her BP is otherwise well-controlled. I advised her to keep a BP log and take that to her appointment with her PCP to determine if she will need to be on an antihypertensive. All additional discharge instructions are listed below. She was hemodynamically stable at the time of discharge and her sx are improving significantly. I advised that we will call her with the results of her hypercoagulable workup. Status at Discharge Functional status at discharge: independent ambulation Overall status at discharge: patient is back to baseline Time Spent with Patient Time attestation: Total time spent providing and/or coordinating discharge services: 30 minutes DS: Data Data Completed and Pending Labs on day of discharge: Lab Results 09/19/19 09/19/19 09/19/19 Range/Units 16:01 16:01 16:01 WBC 10.2 H (4.5-10.0) K/mm3 RBC 4.41 (4.2-5.4) M/mm3 Hgb 13.1 (12.0-15.0) g/dL Hct 39.0 (37.0-47.0) % MCV 88.4 (80-100) fl MCH 29.7 (26-34) pg MCHC 33.6 (32-36) g/dl RDW 12.7 (11.5-14.5) % Plt Count 285 (150-375) k/mm3 MPV 11.4 H (7.4-10.4) fl Immature Gran % (Auto) 0.2 (0-0.5) % Neut % (Auto) 71.7 (45.5-73.1) % Lymph % (Auto) 20.8 (18.3-44.2) % [place] % (Auto) 5.2 (2.6-8.5) % Eos % (Auto) 1.6 (0-4.4) % Baso % (Auto) 0.5 (0.2-1.2) % Lymph # (Auto) 2.12 (0.9-3.2) K/mm3 [place] # (Auto) 0.5 (0.1-0.6) K/mm3 Eos # (Auto) 0.2 (0-0.3) K/mm3 Baso # (Auto) 0.1 (0.0-0.1) K/mm3 Abs Immat Gran (auto) 0.02 (0.00-0.031) K/mm3 Absolute Neuts (auto) 7.3 H (1.3-6.7) K/mm3 Absolute Nucleated RBC 0.0 (0.0-0.012) K/mm3 Nucleated RBC % 0.0 (0.0-0.2) % PT 12.8 (11.1-14.7) [place]
[2019-09-21] MEDS: APIXABAN 5 MG TABLET 10 MG PO (17:24)
[2019-09-22 19:55] LABS: Homocysteine 6.6 umol/L (<10.4)
[2019-09-22 20:46] LABS: Hexagonal Phase Confirm Weak Positive (Negative)
[2019-09-22 21:21] LABS: Lupus dRVVT 1:1 Mix Interpreta Not Indicated; Lupus dRVVT Screen 37 sec (<=45); PTT-LA Screen 45 sec (<=40)
[2019-09-23 21:08] LABS: Antithrombin III Activity 106 % activity (80-120)
--- NOTE | 2019-09-25 14:07 | PC.NURSE ---
LAPTT 45 DDWT 37 Protein C/S- 152/79 Lupus Anticoag is elevated at 45 sec. Patient does not have a PCP.
--- NOTE | 2019-09-25 14:09 | PC.NURSE ---
IMAN Allen aware of abnormal lab.
--- NOTE | 2019-09-30 13:31 | PC.NURSE ---
Factor V and MTHFR- neither one detected.
[2019-10-02 13:03] LABS: Hex Phase Conf Chg Test Yes
[2019-10-02 13:05] LABS: Thrombin Time Chg Test Yes
== END 2019-09-21 18:20 | disposition home or self-care (01) ==
LOC: ANHED 19:21 → ANH3MEDSUR 19:43
PROVIDERS: Nurse Practitioner; Physician Assistant; Admitting Provider Internal Medicine; Emergency Provider Emergency Medicine; Visit Provider Family Medicine
DX: I26.99 Other pulmonary embolism without acute cor pulmonale (principal); E87.6 Hypokalemia; J90 Pleural effusion, not elsewhere classified; J45.909 Unspecified asthma, uncomplicated; I10 Essential (primary) hypertension; R07.89 Other chest pain; Z91.041 Radiographic dye allergy status; Z28.21 Immunization not carried out because of patient refusal
CPT/HCPCS: 36415; 71046; 71275; 78582; 80048; 80053; 81240; 81241; 81291; 83090; 83690; 83735; 84443; 84484; 85025; 85300; 85303; 85306; 85380; 85597; 85598; 85610; 85613; 85670; 85730; 93005; 93306; 93970; 94640; 96372; 96374; 96375; 99285; A9270; A9540; A9558; G0378; J1650; J1885; J3010; J7512; Q9967

== ENCOUNTER 2020-07-18 09:30 | Emergency (ER) | payer OTHER, SELFPAY ==
--- NOTE | ~2020-07-18 | NM_ITS ---
EXAMINATION: NM pulmonary perfusion DATE: 07/18/2020 12:21 INDICATION: Shortness of breath. TECHNIQUE: 5.28 mCi Tc-99m MAA was administered intravenously for perfusion images. Scintigraphic im ages of the chest were obtained. COMPARISON: Chest single view 07/18/2020 FINDINGS: Perfusion images show no defects. IMPRESSION: 1. Normal perfusion. Pulmonary embolism absent. Reviewed, dictated and finalized at location A. ESS STRIPPER
--- NOTE | ~2020-07-18 | XR_ITS ---
EXAMINATION: XR chest 1V portable DATE: 07/18/2020 10:12 INDICATION: Transient breath. Right-sided chest and shoulder pain. TECHNIQUE: frontal view of the chest was obtained. COMPARISON: Chest radiograph dated 09/19/2019 FINDINGS: The lungs are clear with no focal airspace opacities, pulmonary edema, pleural effusion or pneumothor ax. The cardiomediastinal silhouette is normal. Visualized bones and soft tissues are unremarkable. IMPRESSION: 1. No acute cardiopulmonary disease. Reviewed, dictated and finalized at location B. OGIST
[2020-07-18 09:35] VITALS: BP 158/86; PULSE 87; RESP 22; TEMP 36.9; O2SAT 100
--- NOTE | 2020-07-18 09:40 | ECG_ITS ---
Measurements Intervals [place] Rate: 84 P: 30 [place]: 167 QRS: 19 QRSD: 78 T: 11 QT: 374 QTc: 443 Interpretive Statements SINUS RHYTHM NORMAL ECG Electronically Signed On 07-18-2020 10:16:40 RUBBER PRESS TENDER by Vernon Scruggs D.O.
[2020-07-18 09:42] VITALS: PULSE 82
[2020-07-18 09:44] VITALS: O2SAT 100
--- NOTE | 2020-07-18 09:52 | PC.NURSE ---
called main lab, Mary, added on BMP and CBCD [id number]
[2020-07-18 09:58] LABS: Basophils Absolute Auto 0.1 K/mm3 (0.0-0.1); Basophils Percent Auto 0.8 % (0.2-1.2); Eosinophils Absolute Auto 0.2 K/mm3 (0-0.3); Eosinophils Percent Auto 3.2 % (0-4.4); Hematocrit 39.9 % (37.0-47.0); Hemoglobin 13.6 g/dL (12.0-15.0); Immature Granulocyte Absolute 0.01 K/mm3 (0.00-0.031); Immature Granulocyte Percent A 0.2 % (0-0.5); Mean Corpuscular HGB Conc 34.1 g/dl (32-36); Mean Corpuscular Hemoglobin 30.2 pg (26-34); Mean Corpuscular Volume 88.7 fl (80-100); Mean Platelet Volume 11.1 fl (7.4-10.4); Monocytes Absolute Auto 0.4 K/mm3 (0.1-0.6); Monocytes Percent Auto 5.8 % (2.6-8.5); Neutrophils Absolute Auto 3.1 K/mm3 (1.3-6.7); Platelet Count Result 265 k/mm3 (150-375); Red Cell Distribution Width 12.6 % (11.5-14.5); White Blood Count 6.3 K/mm3 (4.5-10.0)
[2020-07-18 10:08] LABS: INR 0.9; Prothrombin Time 12.5 Seconds (11.1-14.7)
[2020-07-18 10:09] LABS: Partial Thromboplastin Time 28.2 SECONDS (22.3-36.8)
[2020-07-18 10:11] LABS: Alanine Aminotransferase 13 U/L (4-35); Albumin Level 4.3 g/dL (3.5-5.1); Alkaline Phosphatase 77 U/L (38-126); Anion Gap 6 mmol/L (8-16); Aspartate Amino Transferase 21 U/L (14-36); Bilirubin,Total 1.1 mg/dL (0.2-1.3); Blood Urea Nitrogen 12 mg/dL (7-17); Calcium 9.3 mg/dL (8.4-10.2); Carbon Dioxide 28 mmol/L (22-30); Chloride 105 mmol/L (98-107); Estimated CRCL calculation 84 ml/min; Estimated Glomerular Filt Rate > 60; Glucose 95 mg/dL (65-105); Potassium 3.8 mmol/L (3.4-5.0); Sodium 139 mmol/L (137-145)
[2020-07-18 10:12] LABS: D Dimer 0.67 ug/mL (<0.48)
[2020-07-18 10:14] LABS: Add Urine Microscopic? YES; Appearance Urine Cloudy (Clear); Bacteria Urine 2+ /hpf; Bilirubin Urine Negative (Negative); Blood Urine 3+ (Negative); Color Urine Yellow (Yellow); Glucose Urine UA Negative (Negative); Ketones Urine Negative (Negative); Leukocyte Esterase Ur 3+ LEU/UL (Negative); Mucus Urine Few /lpf; Nitrate Urine Negative (Negative); Protein Urine Negative (Negative); RBC Urine 51-75 /hpf (0-2); Specific Grav Ur 1.012 (1.001-1.035); Squamous Epithelial Cell Urine Many /hpf (Few); Urobilinogen Urine Negative mg/dL (<2.0); WBC Clumps Urine Present /HPF; WBC Urine >75 /hpf
[2020-07-18 10:21] LABS: NT Pro B Type Natriuretic Pept 298 PG/ML (5-100); Troponin I < 0.012 ng/mL (0.000-0.034)
--- NOTE | 2020-07-18 10:32 | ED.GENADULT ---
HPI - General Adult General Chief complaint: Shortness of Breath/Dyspnea Stated complaint: SOB, pressure under shoulder blade Time Seen by Provider: 07/18/20 09:32 Source: patient Mode of arrival: ambulatory Limitations: no limitations History of Present Illness HPI narrative: Patient is a 49-year-old female who presents with right upper scapular chest pain that began acutely this morning patient also notes associated dyspnea patient notes that she had felt fine prior to this patient notes a year ago having been diagnosed with a pulmonary embolus. Patient has been off her anticoagulation after being cleared. Patient denies URI symptoms. Patient on arrival does not appear distressed or uncomfortable. Patient took an aspirin for her symptoms. Patient also notes that she took her blood pressure medicine today and that she only takes it when she has elevated blood pressure issues. Related Data Home Medications Medication Instructions Recorded Confirmed Vitamin D3 2,000 units PO QAM 09/19/19 07/18/20 amlodipine 5 mg PO DAILY 07/18/20 07/18/20 Allergies Allergy/AdvReac Type Severity Reaction Status Date / Time morphine Allergy Severe Unknown Verified 07/18/20 09:41 iohexol Allergy Mild Unknown Verified 07/18/20 09:41 [From contrast - CT, X-RAY] Review of Systems Review of Systems: All systems reviewed & are unremarkable except as noted in HPI and below PMFSH Past Medical History Medical History (Updated 07/18/20 @ 12:55 by Shaun Weber PA-C) Arthritis Asthma Hemorrhoid Influenza A Kidney stones Migraine Pulmonary embolism UTI (urinary tract infection) Surgical History Surgical History History of dilatation and curettage History of hysterectomy History of surgery on arm Left arm reconstruction x4 History of tubal ligation Previous section x3. Family History Family History Mother Hypertension Heart attack Father Heart attack Grandparent Heart attack Social History Social History Social History: The patient is and her is a durable power family law attorney for healthcare. The patient has 3 children. She desires to be a full code. 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 She does not smoke. Rarely drinks. Smoking status: Never smoker Second hand tobacco smoke exposure: No Alcohol intake: never Substance use: never Substance use type: does not use Gender identity (if verbalized by the patient): Female Spiritual care concerns: No Agree to blood products: Yes Exam Narrative: Exam Narrative: GENERAL: Well-appearing, obese, and in no acute distress. HEAD: Normocephalic, atraumatic. EYES: PERRLA and EOMI. ENT: Nares clear, no rhinorrhea or epistaxis. Mucous membranes moist. NECK: Supple. No adenopathy or masses. CHEST: Clear to auscultation. No respiratory distress. No wheezes rales or rhonchi HEART: Regular rate and rhythm. No murmur heard. Normal peripheral pulses. ABDOMEN: Soft, nontender, nondistended EXTREMITIES: Normal range of motion. No edema. No lower extremity tenderness to palpation SKIN: Warm, dry, no rash. NEURO: No focal deficits. Alert and oriented x3. Cranial nerves II through XII grossly intact PSYCH: Normal mood and affect. Course Course Emergency Course: Patient presented with right scapular back pain which has persisted is a mild aching pain at this time no other high risk changes in the blood work or imaging patient. Hemodynamically stable ABCs intact and stable. Patient will follow with primary care provided with reasons to return given fluids and IV antibiotics in the emergency department discovered to have a urinary tract infection no other high risk changes in the evaluation and felt appropriate for outpatient reevaluation patient agrees with thi
[2020-07-18 11:07] VITALS: BP 133/81; PULSE 75; RESP 20; O2SAT 99
[2020-07-18 13:02] VITALS: BP 146/78; PULSE 80; RESP 23; O2SAT 97
== END 2020-07-18 13:04 | disposition home or self-care (01) ==
PROVIDERS: Emergency Medicine Emergency Medical Services; Emergency Provider Emergency Medicine
DX: M54.6 Pain in thoracic spine (principal); N39.0 Urinary tract infection, site not specified; M19.90 Unspecified osteoarthritis, unspecified site; J45.909 Unspecified asthma, uncomplicated; Z87.442 Personal history of urinary calculi; Z86.711 Personal history of pulmonary embolism
CPT/HCPCS: 36415; 71045; 78580; 80053; 81001; 83880; 84484; 85025; 85380; 85610; 85730; 87077; 87086; 87088; 87186; 93005; 96365; 99284; A4629; A9540; J0696

== ENCOUNTER → 2021-08-05 11:12 | Outpatient (CLI) | payer OTHER, SELFPAY ==
--- NOTE | ~2021-08-05 | MM_ITS ---
EXAMINATION: MM screening emanuel BI w hugo HISTORY: Screening TECHNIQUE: Craniocaudal and mediolateral oblique 3-D tomosynthesis images were obtained and synthetic 2-D images were generated. CAD analysis was submitted and interpreted. COMPARISON: No prior mammogram is available for comparison at this institution. BREAST PARENCHYMAL COMPOSITION: There are scattered areas of fibroglandular density. FINDINGS: There is no evidence of suspicious mass, calcification, or architectural distortion to sugg est malignancy in either breast. There has been no suspicious interval change. IMPRESSION: 1. No mammographic evidence of malignancy. 2. Recommend routine screening mammography in one year. BI-RADS Category 1: Negative Reviewed, dictated and finalized at location A. ER MILL OPERATOR
== END ==
PROVIDERS: Visit Provider Obstetrics & Gynecology
DX: Z12.31 Encounter for screening mammogram for malignant neoplasm of breast (principal)
CPT/HCPCS: 77063; 77067

== ENCOUNTER 2021-09-05 17:20 | Emergency (ER) | payer OTHER, SELFPAY ==
[2021-09-05] VITALS (28 sets, daily range): BP systolic 132–175; BP diastolic 74–95; PULSE 73–95; RESP 14–22; TEMP 36.6; O2SAT 91–100
--- NOTE | ~2021-09-05 | NM_ITS ---
NM pulmonary perfusion DATE: 09/05/2021 19:25 INDICATION: Elevated d-dimer. Chest pain, shortness of breath TECHNIQUE: A standard views following intravenous injection of 3.01 mCi 99m technetium MAA. COMPARISON: 09/05/2021 PA and lateral chest FINDINGS: There is normal distribution of radiotracer throughout both lungs without any abnormal perf usion defects. IMPRESSION: No evidence of pulmonary embolism Reviewed, dictated and finalized at [facility]. Reviewed, dictated and finalized at location [facility].
--- NOTE | ~2021-09-05 | XR_ITS ---
XR chest 2V DATE: 09/05/2021 18:01 INDICATION: Chest pain TECHNIQUE: PA and lateral views COMPARISON: 07/18/2020 portable AP chest FINDINGS: Normal heart size. No hilar or mediastinal enlargement. No pulmonary infiltrate or consolidation, pleural effusion or pulmonary vascular congestion or pneumo thorax. Degenerative spurring of the thoracic spine. IMPRESSION: No active cardiopulmonary disease Reviewed, dictated and finalized at location [facility].
--- NOTE | ~2021-09-05 | CT_ITS ---
EXAMINATION: CT brain wo con DATE: 09/05/2021 17:55 INDICATION: Right facial numbness for one week. Headache, dizziness. TECHNIQUE: Computed tomography (CT) of the head was performed without intravenous contrast. The mA wa s adjusted according to patient size. Iterative reconstruction technique was employed. Exam dose: 60 5.33 mGy-cm total exam DLP. COMPARISON: 12/08/2015 CT brain FINDINGS: No intracranial mass lesion or hemorrhage or cerebrovascular accident. No midline shift or mass effect. Normal lobo-white matter differentiation. Normal ventricular size. No subdural or epidural hematoma. No fracture or bone destruction of the cranial vault. Mastoid air cells and paranasal sinuses are nor julian aerated. IMPRESSION: Negative Reviewed, dictated and finalized at [facility]. Reviewed, dictated and finalized at [facility]. IMPRESSION: Negative
--- NOTE | 2021-09-05 17:21 | ECG_ITS ---
Measurements Intervals [place] Rate: 95 P: 43 [place]: 167 QRS: 25 QRSD: 83 T: 9 QT: 288 QTc: 363 Interpretive Statements SINUS RHYTHM NONSPECIFIC T-WAVE ABNORMALITY COMPARED TO ECG 07/18/2020 09:40:20 T-WAVE ABNORMALITY NOW PRESENT Electronically Signed On 09-05-2021 18:40:47 CDT by Ainsley Amezquita M.D.
--- NOTE | 2021-09-05 17:28 | ED.CHESTPAIN ---
HPI - Chest Pain General Chief Complaint: Chest Pain <Sariah Gil PA-C - Last Filed: 09/06/21 02:17> Stated Complaint: Chest pain <Sariah Gil PA-C - Last Filed: 09/06/21 02:17> Time Seen by Provider: 09/05/21 17:22 <Sariah Gil PA-C - Last Filed: 09/06/21 02:17> Source: patient <MARIEL Knowles Last Filed: 09/06/21 02:17> Mode of arrival: ambulatory <MARIEL Knowles Last Filed: 09/06/21 02:17> Limitations: no limitations <MARIEL Knowles Last Filed: 09/06/21 02:17> History of Present Illness HPI narrative: Patient is a 50-year-old female who presents the ED with report of facial tingling, CP, SOB. Patient reports having intermittent tingling in her right facial cheek for 1 week. She has not noticed any facial droop, slurred speech, vision changes, focal weakness, or issues with her gait, but reports she has had a mild headache. She has not taken anything for this pain. She mentions having increased stress with work this past week. Patient then reports she developed bilateral upper back pain below her scapulas a few days ago. She developed lower midsternal chest pain today, described as an intermittent sharp pain. She states that chest pain seems to now radiate to her shoulders and be connected. CP is aggravated with taking a deep breath. 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 She does wear compression stockings while at work. Patient denies any recent cough, hemoptysis, orthopnea, fever, chills, abdominal pain, nausea, vomiting, dysuria, hematuria, urinary frequency. Patient reports history of DVT and PE in August 2019 associated with suspected COVID-19. She was on Eliquis for 6 months after this and is no longer taking any blood thinners. <MARIEL Knowles Last Filed: 09/06/21 02:17> Related Data Home Medications: Home Medications Medication Instructions Recorded Confirmed amlodipine 5 mg PO DAILY 07/18/20 07/18/20 <Sariah Gil PA-C - Last Filed: 09/06/21 02:17> Allergies/Adverse Reactions: Allergies Allergy/AdvReac Type Severity Reaction Status Date / Time morphine Allergy Severe Unknown Verified 07/18/20 09:41 iohexol Allergy Mild Unknown Verified 07/18/20 09:41 [From contrast - CT, X-RAY] <Sariah Gil PA-C - Last Filed: 09/06/21 02:17> Review of Systems Review of Systems: CONSTITUTIONAL: Denies fever, chills, or sweats. EENT: Denies vision changes, rhinorrhea, congestion. CARDIOVASCULAR: Reports lower midsternal chest pain, occasional BLE edema. Denies palpitations. RESPIRATORY: Reports dyspnea on exertion. Denies cough, hemoptysis. GASTROINTESTINAL: Denies abdominal pain, nausea, vomiting, or diarrhea. GENITOURINARY: Denies dysuria, urinary frequency, or hematuria. MUSCULOSKELETAL: Reports bilateral upper back pain below scapulas. Denies joint pain, or myalgia. NEUROLOGIC: Reports tingling to right-sided face, mild headache. Denies focal weakness in arms or legs, gait disturbance, slurred speech, facial droop, confusion. <Sariah Gil PA-C - Last Filed: 09/06/21 02:17> All systems reviewed & are unremarkable except as noted in HPI and below <Sariah Gil PA-C - Last Filed: 09/06/21 02:17> [facility] Past Medical History Medical History: Medical History Arthritis Asthma Hemorrhoid Influenza A Kidney stones Migraine Pulmonary embolism UTI (urinary tract infection) <Sariah Gil PA-C - Last Filed: 09/06/21 02:17> Surgical History Surgical History: Surgical History History of dilatation and curettage History of hysterectomy History of surgery on arm Left arm reconstruction x4 History of tubal ligation Previous section x3. <Sariah Gil PA-C - Last Filed: 03
--- NOTE | 2021-09-05 17:35 | PC.NURSE ---
EDP at the bedside to assess pt.
[2021-09-05 17:46] LABS: Basophils Absolute Auto 0.1 K/mm3 (0.0-0.1); Basophils Percent Auto 0.9 % (0.2-1.2); Eosinophils Absolute Auto 0.2 K/mm3 (0-0.3); Eosinophils Percent Auto 2.3 % (0-4.4); Hematocrit 38.5 % (37.0-47.0); Hemoglobin 13.1 g/dL (12.0-15.0); Immature Granulocyte Absolute 0.01 K/mm3 (0.00-0.031); Immature Granulocyte Percent A 0.1 % (0-0.5); Lymphocytes Percent Auto 39.8 % (18.3-44.2); Mean Corpuscular Hemoglobin 30.5 pg (26-34); Mean Corpuscular Volume 89.5 fl (80-100); Mean Platelet Volume 11.1 fl (7.4-10.4); Monocytes Absolute Auto 0.5 K/mm3 (0.1-0.6); Monocytes Percent Auto 6.2 % (2.6-8.5); Neutrophils Absolute Auto 3.8 K/mm3 (1.3-6.7); Neutrophils Percent Auto 50.7 % (45.5-73.1); Platelet Count Result 266 k/mm3 (150-375); Red Cell Distribution Width 12.9 % (11.5-14.5); White Blood Count 7.5 K/mm3 (4.5-10.0)
[2021-09-05 17:49] LABS: Alanine Aminotransferase 14 U/L (4-35); Albumin Level 4.3 g/dL (3.5-5.1); Alkaline Phosphatase 76 U/L (38-126); Anion Gap 7 mmol/L (8-16); Aspartate Amino Transferase 24 U/L (14-36); Bilirubin,Total 1.4 mg/dL (0.2-1.3); Blood Urea Nitrogen 13 mg/dL (7-17); Calcium 8.8 mg/dL (8.4-10.2); Carbon Dioxide 26 mmol/L (22-30); Chloride 107 mmol/L (98-107); Estimated CRCL calculation 0 ml/min; Estimated Glomerular Filt Rate > 60; Glucose 137 mg/dL (65-110); Lipase 27 U/L (23-300); Potassium 3.3 mmol/L (3.4-5.0); Sodium 140 mmol/L (137-145)
[2021-09-05 17:51] LABS: Prothrombin Time 13.2 Seconds (11.1-14.7)
--- NOTE | 2021-09-05 17:51 | PC.NURSE ---
Patient off unit to Radiology.
[2021-09-05 17:52] LABS: Partial Thromboplastin Time 29.3 SECONDS (22.3-36.8)
[2021-09-05 18:00] LABS: Troponin I < 0.012 ng/mL (0.000-0.034)
[2021-09-05 18:06] LABS: D Dimer 0.93 ug/mL (<0.48)
--- NOTE | 2021-09-05 18:59 | PC.NURSE ---
Patient off unit to Nuclear Medicine.
--- NOTE | 2021-09-05 19:08 | PC.NURSE ---
Addendum entered by Snehal lE RN 09/05/21 19:09: Report given to PETROS Grande. Original Note: Patient report given to PETROS Rolle. All questions answered and care of patient transferred.
--- NOTE | 2021-09-05 19:11 | PC.NURSE ---
Assuming care of pt. Pt currently in NM.
[2021-09-05 19:48] LABS: Add Urine Microscopic? YES; Appearance Urine Cloudy (Clear); Bacteria Urine Trace /hpf; Bilirubin Urine Negative (Negative); Blood Urine 3+ (Negative); Color Urine Yellow (Yellow); Glucose Urine UA Negative (Negative); Ketones Urine Negative (Negative); Leukocyte Esterase Ur Negative LEU/UL (Negative); Mucus Urine Rare /lpf; Nitrate Urine Positive (Negative); Protein Urine Negative (Negative); Specific Grav Ur 1.015 (1.001-1.035); Squamous Epithelial Cell Urine Many /hpf (Few); Urobilinogen Urine Negative mg/dL (<2.0)
[2021-09-05 20:49] LABS: Troponin I < 0.012 ng/mL (0.000-0.034)
[2021-09-05] MEDS: POTASSIUM CHLORIDE 20 MEQ TABLET 40 MEQ PO (22:00)
== END 2021-09-05 22:09 | disposition home or self-care (01) ==
PROVIDERS: Physician Assistant; Emergency Provider Emergency Medicine; PCP Physician Assistant
DX: R07.89 Other chest pain (principal); R82.81 Pyuria; R79.1 Abnormal coagulation profile; J45.909 Unspecified asthma, uncomplicated; M19.90 Unspecified osteoarthritis, unspecified site; Z86.718 Personal history of other venous thrombosis and embolism; Z86.711 Personal history of pulmonary embolism; Z87.442 Personal history of urinary calculi; Z87.440 Personal history of urinary (tract) infections; R94.31 Abnormal electrocardiogram [ECG] [EKG]
CPT/HCPCS: 36415; 70450; 71046; 78580; 80053; 81001; 83690; 84484; 85025; 85380; 85610; 85730; 87086; 87088; 93005; 96365; 99284; A9270; A9540; J0131

== ENCOUNTER 2021-10-24 09:06 | Outpatient (CLI) | payer OTHER, SELFPAY ==
--- NOTE | 2021-10-26 13:37 | WPDHOLTEREM ---
Holter/Event Monitor Holter/Event Monitor Date of procedure: 10/24/21 Holter/Event Procedure: 48 Hr Holter Monitor Diagnosis: Tachycardia Indications: Tachycardia Image/Tracing Quality: Good Finding: A total of 47 hours and 59 minutes recorded and analyzed. Underlying normal sinus rhythm with heart rate variability between 63 and 135 beats per minute with an average heart rate of 85 beats per minute. The AV and IV conduction systems were within normal limits. Low frequency ventricular ectopy totaling 6 PVCs. No sustained or nonsustained runs of ventricular arrhythmia Low frequency supraventricular ectopy totaling 167 beats. This consisted 5 atrial couplets and the rest of which were isolated premature atrial contractions. No sustained or nonsustained runs of supraventricular arrhythmia. Longest RR interval was 1.3 seconds. Several symptom events of chest pain, jaw pain, arm pain correlate to sinus rhythm only without arrhythmia. Conclusion: 1. Unremarkable 48 hour Holter monitor revealing underlying normal sinus rhythm with average heart rate of 85 beats per minute. 2. Low-frequency ventricular and supraventricular ectopy as detailed above up but without complex arrhythmia, heart block or pauses 3. Symptom events correlated to sinus rhythm only
== END 2021-10-24 09:07 | disposition home or self-care (01) ==
PROVIDERS: PCP Physician Assistant; Visit Provider Physician Assistant
DX: R00.0 Tachycardia, unspecified (principal)
CPT/HCPCS: 93225; 93226

== ENCOUNTER 2022-03-20 14:53 | Emergency (ER) | payer OTHER, SELFPAY ==
--- NOTE | ~2022-03-20 | XR_ITS ---
EXAMINATION: XR hand LT min 3V DATE: 03/20/2022 15:16 INDICATION: Posterior left hand pain and swelling post fall TECHNIQUE: Posteroanterior, oblique and lateral views of the left hand were obtained. COMPARISON: None. FINDINGS: Bone alignment is normal. No fracture. Small sclerotic focus projecting over the dorsal/ulnar margin of the distal radius, unclear whether this represents an osteophyte, bone island or superimposed smal l loose osteochondral body. Mild polyarticular osteoarthritis involving the distal radioulnar, midcar pal and multiple predominantly distal interphalangeal joints. No erosions. Small surgical clip at the volar aspect of the distal forearm. Mild soft tissue swelling dorsal to the heads of the metacarpals .. IMPRESSION: 1. 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 No acute osseous abnormality. Reviewed, dictated and finalized at location [facility]. IMPRESSION: 1. 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 No acute osseo us abnormality.
--- NOTE | 2022-03-20 14:57 | ED.UPPEXIN ---
HPI - Extremity Injury (Upper) General Stated Complaint: Fall/ Left hand Pain Time Seen by Provider: 03/20/22 14:57 Source: patient Mode of arrival: ambulatory Limitations: no limitations History of Present Illness HPI narrative: Ms. Burnett is a 51-year-old female patient presenting to the clinic today with complaints of left hand pain after fall. She reports she fell in a furnace grate yesterday and hurt her left hand. She is having pain in the left third finger radiating into the hand. Related Data Home Medications Medication Instructions Recorded Confirmed No Home Medications 03/20/22 03/20/22 Allergies Allergy/AdvReac Type Severity Reaction Status Date / Time morphine Allergy Severe Unknown Verified 03/20/22 15:04 iohexol Allergy Mild Unknown Verified 03/20/22 15:04 [From contrast - CT, X-RAY] Review of Systems Review of Systems: Pertinent positives per HPI. Patient denies any fever, chills, rash, headache, visual changes, dizziness, cough, runny nose, sore throat, shortness of breath, chest pain, palpitations, nausea, vomiting, diarrhea, constipation, abdominal pain, or any urinary issues. REPLACED BY [facility] Past Medical History Medical History Arthritis Asthma Hemorrhoid Influenza A Kidney stones Migraine Pulmonary embolism UTI (urinary tract infection) Surgical History Surgical History History of dilatation and curettage History of hysterectomy History of surgery on arm Left arm reconstruction x4 History of tubal ligation Previous section x3. 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 The patient has 3 children. She desires to be a full code. 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 She does not smoke. Rarely drinks. Smoking status: Never smoker Second hand tobacco smoke exposure: No Alcohol intake: never Alcohol use details: Occasional Substance use: never Substance use type: does not use Gender identity (if verbalized by the patient): Female Spiritual care concerns: No Agree to blood products: Yes Comments At the time of my signature, I reviewed and agree with the nursing past medical, surgical, social, and family history. There is no relevant family history pertinent to the patient complaint. Exam Narrative: General: Well-developed, well nourished, in no apparent distress Head: Normocephalic, atraumatic. Cardio: Regular rate and rhythm, s1 and s2 normal, no murmur appreciated. Resp: Clear to auscultation bilaterally, no rhonchi, rales, wheezing or rubs. Musculoskeletal: No deformity, swelling over the left third knuckle/palm, tender to palpation over the left third knuckle and finger, limited range of motion to the left third finger due to pain and swelling, muscle strength strong and equal, peripheral pulse strong, no cyanosis, normal gait and station Course Course Emergency Course: Portions of this record may have been created with voice recognition software. Level of Care: Express Care Visit Vital Signs Vital signs: Vital signs reviewed MDM - Extremity Injury (Upper) MDM Narrative Medical decision making narrative: At the time of visit patient is resting comfortably on the exam table. X-ray was performed and showed no sign of fracture or malalignment in the left hand or wrist. Does show some arthritis. I suspect the patient has a hand sprain. Supportive measures were discussed with the patient she voiced understanding of discharge instructions and agrees to treatment plan. Differential Diagno
[2022-03-20 15:01] VITALS: BP 154/83; PULSE 74; RESP 16; TEMP 36.1; O2SAT 100
[2022-03-20 15:13] VITALS: BP 154/83; PULSE 74; RESP 16; TEMP 36.1; O2SAT 100
== END 2022-03-20 15:50 | disposition home or self-care (01) ==
PROVIDERS: Emergency Provider Nurse Practitioner Family; PCP Physician Assistant
DX: M19.042 Primary osteoarthritis, left hand (principal); S63.92XA Sprain of unspecified part of left wrist and hand, initial encounter; W19.XXXA Unspecified fall, initial encounter; J45.909 Unspecified asthma, uncomplicated; Z86.711 Personal history of pulmonary embolism
CPT/HCPCS: 73130; 99213; G0463

== ENCOUNTER 2023-05-21 11:57 | Emergency (ER) | payer OTHER, SELFPAY ==
--- NOTE | 2023-05-21 12:05 | ED.URI ---
HPI - URI/Sore Throat General Chief Complaint: Upper Respiratory Infection Stated Complaint: wheezing Time Seen by Provider: 05/21/23 12:32 Source: patient and RN notes reviewed Mode of arrival: ambulatory Limitations: no limitations History of Present Illness HPI Narrative: 52-year-old female with history of asthma presents with concern of for 4 day history of cough, wheezing, fever, chills. She reports she last used her inhaler this morning. Reports she has been using it every 3-4 hours of the last couple of days without much relief. MD elicited complaint: cough Related Data Home Medications Medication Instructions Recorded Confirmed ipratropium 18 mcg-albuterol 103 spray inhalation 05/21/23 mcg/actuation aerosol inhaler Allergies Allergy/AdvReac Type Severity Reaction Status Date / Time morphine Allergy Severe Unknown Verified 05/21/23 12:11 iohexol Allergy Mild Unknown Verified 05/21/23 12:11 [From contrast - CT, X-RAY] Fish Containing Products Allergy Anaphylaxis Verified 05/21/23 12:11 Review of Systems Review of Systems: CONSTITUTIONAL: Reports malaise, chills, fever. EYES: Denies visual changes, redness, or discharge. ENT: Reports rhinorrhea, congestion. Sinus pain, otalgia and sore throat. CARDIOVASCULAR: Denies chest pain, palpitations, or edema. RESPIRATORY: Reports cough, dyspnea. GASTROINTESTINAL: Denies abdominal pain, nausea, vomiting, diarrhea SKIN: Denies rash or itching. MUSCULOSKELETAL: Denies myalgia. NEUROLOGIC: Denies headache. All systems reviewed & are unremarkable except as noted in HPI and below PMFSH Past Medical History Medical History Arthritis Asthma Hemorrhoid Influenza A Kidney stones Migraine Pulmonary embolism UTI (urinary tract infection) Surgical History Surgical History History of dilatation and curettage History of hysterectomy History of surgery on arm Left arm reconstruction x4 History of tubal ligation Previous section x3. 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 The patient has 3 children. She desires to be a full code. 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 She does not smoke. Rarely drinks. Smoking status: Never smoker Second hand tobacco smoke exposure: No Alcohol intake: never Alcohol use details: Occasional Substance use: never Substance use type: does not use Living arrangements: with family Occupation/Education: occupation Gender identity (if verbalized by the patient): Female Spiritual care concerns: No Agree to blood products: Yes Comments At time of signature, agree with nursing past medical, surgical, social and family history. There is no relevant family history pertinent to the presenting complaint Exam Narrative: GENERAL: Nontoxic-appearing and in no acute distress. HEAD: Normocephalic EYES: PERRLA, conjunctivae clear ENT: Nares clear, clear discharge. Mucous membranes moist. TM pearly lobo with sharp light reflex bilaterally; no tragal tenderness. Oropharynx not erythematous without lesions. Tonsils not enlarged and without exudate, no drooling, no hoarseness, no trismus, uvula midline. NECK: Supple. No lymphadenopathy CHEST: Expiratory and expiratory wheeze noted, breath sounds equal. No rhonchi, rales, or stridor. No respiratory distress, speaks in full sentences. HEART: Regular rate and rhythm. No murmur heard. SKIN: Warm, dry, no rash. NEURO: Alert and oriented x3. PSYCH: Normal mood and affect Course Course Emergency [facility]
[2023-05-21 12:12] VITALS: BP 138/75; PULSE 97; RESP 18; TEMP 36.3; O2SAT 99
[2023-05-21] MEDS: ALBUTEROL SULFATE NEB 2.5 MG/3 ML INH INHALATION (12:40)
[2023-05-21] MEDS: LEVALBUTEROL NEB 1.25 MG/3 ML INHALATION (12:40)
== END 2023-05-21 13:07 | disposition home or self-care (01) ==
PROVIDERS: Emergency Provider Nurse Practitioner
DX: B34.9 Viral infection, unspecified (principal); Z20.822 Contact with and (suspected) exposure to COVID-19; M19.90 Unspecified osteoarthritis, unspecified site; J45.909 Unspecified asthma, uncomplicated; Z86.711 Personal history of pulmonary embolism
CPT/HCPCS: 87081; 87426; 87804; 87880; 99213; C9803; G0463

== ENCOUNTER 2023-05-28 16:05 | Emergency (ER) | payer OTHER, SELFPAY ==
[2023-05-28] VITALS (8 sets, daily range): BP systolic 138–171; BP diastolic 81–90; PULSE 86–99; RESP 16–20; TEMP 36.7; O2SAT 98–100
--- NOTE | ~2023-05-28 | XR_ITS ---
EXAMINATION: XR chest 2V DATE: 05/28/2023 17:04 INDICATION: Chest pain TECHNIQUE: frontal and lateral views of the chest were obtained. COMPARISON: Chest radiograph dated 09/05/2021 FINDINGS: Mild elevation the left hemidiaphragm. Lungs remain clear with no focal airspace opacities, pulmonary edema, pleural effusion or pneumothorax. The cardiomediastinal silhouette is normal. Moderate thorac ic spondylosis. IMPRESSION: 1. Mild elevation left hemidiaphragm. No other acute cardiopulmonary disease. 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
--- NOTE | 2023-05-28 16:07 | ECG_ITS ---
Measurements Intervals [place] Rate: 102 P: 43 MO: 180 QRS: 22 QRSD: 83 T: 30 QT: 270 QTc: 352 Interpretive Statements SINUS TACHYCARDIA NONSPECIFIC T-WAVE ABNORMALITY ABNORMAL RHYTHM ECG COMPARED TO ECG 09/05/2021 17:27:27 SINUS TACHYCARDIA NOW PRESENT Electronically Signed On 05-28-2023 20:19:35 [employer] by Ainsley Amezquita M.D.
[2023-05-28 16:33] LABS: Basophils Absolute Auto 0.1 K/mm3 (0.0-0.1); Basophils Percent Auto 0.8 % (0.2-1.2); Eosinophils Absolute Auto 0.3 K/mm3 (0-0.3); Eosinophils Percent Auto 3.9 % (0-4.4); Hematocrit 35.7 % (37.0-47.0); Hemoglobin 12.1 g/dL (12.0-15.0); Immature Granulocyte Absolute 0.02 K/mm3 (0.00-0.031); Immature Granulocyte Percent A 0.3 % (0-0.5); Lymphocytes Absolute Auto 2.64 K/mm3 (0.9-3.2); Lymphocytes Percent Auto 33.3 % (18.3-44.2); Mean Corpuscular HGB Conc 33.9 g/dl (32-36); Mean Corpuscular Hemoglobin 29.9 pg (26-34); Mean Corpuscular Volume 88.1 fl (80-100); Mean Platelet Volume 10.6 fl (7.4-10.4); Monocytes Absolute Auto 0.4 K/mm3 (0.1-0.6); Monocytes Percent Auto 4.4 % (2.6-8.5); Neutrophils Absolute Auto 4.5 K/mm3 (1.3-6.7); Neutrophils Percent Auto 57.3 % (45.5-73.1); Platelet Count Result 232 k/mm3 (150-375); Red Blood Count 4.05 M/mm3 (4.2-5.4); Red Cell Distribution Width 12.5 % (11.5-14.5); White Blood Count 7.9 K/mm3 (4.5-10.0)
[2023-05-28 16:41] LABS: Alanine Aminotransferase 21 U/L (6-35); Albumin Level 3.9 g/dL (3.5-5.1); Alkaline Phosphatase 87 U/L (38-126); Anion Gap 9 mmol/L (8-16); Aspartate Amino Transferase 22 U/L (14-36); Bilirubin,Total 0.8 mg/dL (0.2-1.3); Blood Urea Nitrogen 9 mg/dL (7-17); Calcium 8.8 mg/dL (8.4-10.2); Carbon Dioxide 23 mmol/L (22-30); Chloride 105 mmol/L (98-107); Estimated CRCL calculation 92 ml/min; Estimated Glomerular Filt Rate > 60; Glucose 180 mg/dL (65-110); Lipase 39 U/L (23-300); Potassium 3.3 mmol/L (3.4-5.0); Sodium 137 mmol/L (137-145)
[2023-05-28 16:45] LABS: Prothrombin Time 13.7 Seconds (11.1-14.7)
[2023-05-28 16:46] LABS: Partial Thromboplastin Time 31.9 SECONDS (22.3-36.8)
[2023-05-28 16:53] LABS: Troponin I < 0.012 ng/mL (0.000-0.034)
--- NOTE | 2023-05-28 17:00 | ED.CHESTPAIN ---
HPI - Chest Pain General Chief Complaint: Chest Pain Stated Complaint: chest pain Time Seen by Provider: 05/28/23 16:45 Source: patient and family (/partner) Limitations: no limitations History of Present Illness HPI narrative: This is a 52 yo female with asthma who presents with chest pain that started at approximately 3:15pm. She describes it as like a shock , radiating to her left jaw and shoulder. The pain was constant and even caused her to present to the fire department. She was also short of breath. She administered 324 aspirin and a nitro which helped allevaite the chest pain though she still feels it in her jaw a bit. She also has nitro paste on. No nausea, vomiging, fevers. She has been coughing and wheezing, cough productive of yellow sputum. Also a runny nose. She was seen elsewhere and given a Z pack and prednisone. She felt the prednisone was causing palpitations so discontinued this and threw these pills away. She has previously received prednisone pills she believes and definitely a steroid injection as IV contrast prep due to listed allergy. She has a history of PVCs and saw a serology teacher 2 years ago and wore an event monitor for 1 month without any diagnosis. She has been using her albuterol inhaler. Not on hormones, no recent travel or surgery. She did have a history of a pulmonary embolism and was on Elliquis but it was discontinued after 6 months. Related Data Home Medications Medication Instructions Recorded Confirmed ipratropium 18 mcg-albuterol 103 spray inhalation 05/21/23 mcg/actuation aerosol inhaler Allergies Allergy/AdvReac Type Severity Reaction Status Date / Time morphine Allergy Severe Unknown Verified 05/21/23 12:11 iohexol Allergy Mild Unknown Verified 05/21/23 12:11 [From contrast - CT, X-RAY] Fish Containing Products Allergy Anaphylaxis Verified 05/21/23 12:11 [facility] Past Medical History Medical History (Updated 05/31/23 @ 10:07 by Eileen Cain MD) Arthritis Asthma Hemorrhoid Influenza A Kidney stones Migraine Pulmonary embolism PVCs (premature ventricular contractions) (history, resolved) UTI (urinary tract infection) Surgical History Surgical History History of dilatation and curettage History of hysterectomy History of surgery on arm Left arm reconstruction x4 History of tubal ligation Previous section x3. 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 The patient has 3 children. She desires to be a full code. 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 She does not smoke. Rarely drinks. Smoking status: Never smoker Second hand tobacco smoke exposure: No Alcohol intake: never Alcohol use details: Occasional Substance use: never Substance use type: does not use Living arrangements: with family Occupation/Education: occupation Gender identity (if verbalized by the patient): Female Spiritual care concerns: No Agree to blood products: Yes Exam Narrative: GENERAL: Well-appearing, well-nourished, and in no acute distress. HEAD: Normocephalic, atraumatic. EYES: Non injected, non icteric ENT: Nares clear, no rhinorrhea or epistaxis. NECK: Supple. Normal range of motion. CHEST: Diffuse wheezes throughout but speaking in full sentences. No respiratory distress. HEART: Borderline tachycardic rate and rhythm. . ABDOMEN: Soft, nondistended. EXTREMITIES: Normal range of motion. No edema. SKIN: Warm, dry, no rash. NEURO: No focal deficits. Alert and oriented x3. PSYCH: Normal mood and affect. Course Vital Signs Vital signs:
[2023-05-28] MEDS: IPRATROPIUM BR 0.02% INH SOLN 0.5 MG/2.5 ML VIAL INHALATION (17:25)
[2023-05-28] MEDS: ALBUTEROL SULFATE NEB 2.5 MG/3 ML INH INHALATION ×2 (17:25→20:07)
[2023-05-28 17:33] LABS: D Dimer 0.46 ug/mL (<0.48)
[2023-05-28 17:56] LABS: Influenza A QL RT-PCR Negative (Negative); Influenza B QL RT-PCR Negative (Negative); SARS-CoV-2 RNA PCR Negative (Negative)
[2023-05-28 19:46] LABS: Troponin I < 0.012 ng/mL (0.000-0.034)
[2023-05-28] MEDS: predniSONE 20 MG TABLET 60 MG PO (20:30)
[2023-05-28] MEDS: POTASSIUM CHLORIDE 20 MEQ ER TABLET PO (20:31)
== END 2023-05-28 21:21 | disposition home or self-care (01) ==
PROVIDERS: Emergency Medicine; Emergency Provider Student in an Organized Health Care Education/Training Program
DX: J45.901 Unspecified asthma with (acute) exacerbation (principal); R00.0 Tachycardia, unspecified; Z20.822 Contact with and (suspected) exposure to COVID-19; M19.90 Unspecified osteoarthritis, unspecified site; Z87.442 Personal history of urinary calculi; Z86.711 Personal history of pulmonary embolism
CPT/HCPCS: 36415; 71046; 80053; 83690; 84484; 85025; 85380; 85610; 85730; 87636; 93005; 94640; 99285; A9270; J7512

== ENCOUNTER 2023-10-12 11:46 | Emergency (ER) | payer OTHER, SELFPAY ==
--- NOTE | ~2023-10-12 | XR_ITS ---
EXAMINATION: XR chest 1V portable 10/12/2023 12:38 INDICATION: Shortness of breath and chest pain PROCEDURE: AP portable chest COMPARISON: No prior studies for comparison. FINDINGS: The lungs are clear. The cardiomediastinal silhouette is within normal limits. There are no pleural effusions. There is no pneumothorax suspected. IMPRESSION: 1: NO ACUTE CARDIOPULMONARY DISEASE. Reviewed, dictated and finalized at location A.
[2023-10-12 11:54] VITALS: BP 161/120; PULSE 96; RESP 16; TEMP 36.7; O2SAT 99
--- NOTE | 2023-10-12 12:00 | ECG_ITS ---
SEE SCANNED COPY FOR CONFIRMED REPORT MTDD
--- NOTE | 2023-10-12 12:00 | ED_ITS ---
HPI - Chest Pain General Chief Complaint: Chest Pain <Filippo Trevizo APRN - Last Filed: 10/12/23 13:07> Stated Complaint: cp <Filippo Trevizo APRN - Last Filed: 10/12/23 13:07> Time Seen by Provider: 10/12/23 11:55 <Filippo Trevizo APRN - Last Filed: 10/12/23 13:07> Source: patient <Filippo Trevizo APRN - Last Filed: 10/12/23 13:07> Mode of arrival: ambulatory <Filippo Trevizo APRN - Last Filed: 10/12/23 13:07> Limitations: no limitations <Filippo Trevizo APRN - Last Filed: 10/12/23 13:07> History of Present Illness HPI narrative: Johanna is a 52-year-old female patient presenting to the emergency room today with complaints of midsternal chest pain that sharp. Rates her pain currently a 6/10. Also reporting associated shortness of breath. Is very anxious/upset, her son this week prior to her symptoms beginning. <Filippo Trevizo APRN - Last Filed: 10/12/23 13:07> Related Data Home Medications: Home Medications Medication Instructions Recorded Confirmed ipratropium 18 mcg-albuterol 103 spray inhalation 05/21/23 mcg/actuation aerosol inhaler <Filippo Trevizo APRN - Last Filed: 10/12/23 13:07> Allergies/Adverse Reactions: Allergies Allergy/AdvReac Type Severity Reaction Status Date / Time morphine Allergy Severe Unknown Verified 05/21/23 12:11 iohexol Allergy Mild Unknown Verified 05/21/23 12:11 [From contrast - CT, X-RAY] Fish Containing Products Allergy Anaphylaxis Verified 05/21/23 12:11 <Filippo Trevizo APRN - Last Filed: 10/12/23 13:07> Review of Systems Review of Systems: Pertinent positives per HPI. Patient denies any fever, chills, rash, headache, visual changes, dizziness, cough, runny nose, sore throat, palpitations, nausea, vomiting, diarrhea, constipation, abdominal pain, or any urinary issues. <Filippo Trevizo APRN - Last Filed: 10/12/23 13:07> [facility] Past Medical History Medical History: Medical History Arthritis Asthma Hemorrhoid Influenza A Kidney stones Migraine Pulmonary embolism PVCs (premature ventricular contractions) (history, resolved) UTI (urinary tract infection) <Filippo Trevizo APRN - Last Filed: 10/12/23 13:07> Surgical History Surgical History: Surgical History History of dilatation and curettage History of hysterectomy History of surgery on arm Left arm reconstruction x4 History of tubal ligation Previous section x3. 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 The patient has 3 children. She desires to be a full code. 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 She does not smoke. Rarely drinks. Smoking status: Never smoker Second hand tobacco smoke exposure: No Alcohol intake: never Alcohol use details: Occasional Substance use: never Substance use type: does not use Living arrangements: with family Occupation/Education: occupation Gender identity (if verbalized by the patient): Female Spiritual care concerns: No Agree to blood products: Yes <YURI Escalera Last Filed: 10/12/23 13:07> Comments At the time of my signature, I reviewed and agree with the nursing past medical, surgical, social, and family history. There is no relevant family history pertinent to the patient complaint. <Filippo Trevizo APRN - Last Filed: 10/12/23 13:07> Exam Narrative: General: Well-developed, morbid obese,anxious Head: Normocephalic, atraumatic. Cardio: Regular rate and rhythm, s1 and s2 normal, no murmur appreciated. Resp: Clear to auscultation bilaterally, no rhonchi, rales, wheezing or rubs. Extremities: No deformity, no edema, no cyanosis, capillary refill less than 2 seconds, peripheral pulses palpable and strong. Integumentary: [place], warm, and dry, intact without lesion, no rashes. <Filippo Trevizo APRN - Last Filed: 10/12/23 13:07> Course Course Emergency Course: Portions of this record may have been created with voice recognition software. <Filippo Trevizo APRN - Last Filed: 10/12/23 13:07> ACQUISITION ASSOCIATE/PA Physician Supervision I agree with midlevel documentation; I performed the medical decision making component of this evaluation. <Chastity Reyes MD - Last Filed: 10/12/23 13:42> Vital Signs Vital signs: Vital Signs Temperature 98.1 F 10/12/23 11:54 Pulse Rate 96 10/12/23 11:54 Respiratory Rate 16 10/12/23 11:54 Blood Pressure 161/120 H 10/12/23 11:54 Pulse Oximetry 99 10/12/23 11:54 Oxygen Delivery Room Air 10/12/23 11:54 Temperature 98.1 F 10/12/23 11:54 Pulse Rate 82 10/12/23 13:18 Respiratory Rate 18 10/12/23 13:18 Blood Pressure 143/82 H 10/12/23 13:18 Pulse Oximetry 98 10/12/23 13:18 Oxygen Delivery Room Air 10/12/23 12:15 Vital signs reviewed <Filippo Trevizo APRN - Last Filed: 10/12/23 13:07> Vital Signs Temperature 98.1 F 10/12/23 11:54 Pulse Rate 96 10/12/23 11:54 Respiratory Rate 16 10/12/23 11:54 Blood Pressure 161/120 H 10/12/23 11:54 Pulse Oximetry 99 10/12/23 11:54 Oxygen Delivery Room Air 10/12/23 11:54 Temperature 98.1 F 10/12/23 11:54 Pulse Rate 82 10/12/23 13:18 Respiratory Rate 18 10/12/23 13:18 Blood Pressure 143/82 H 10/12/23 13:18 Pulse Oximetry 98 10/12/23 13:18 Oxygen Delivery Room Air 10/12/23 12:15 <Chastity Reyes MD - Last Filed: 10/12/23 13:42> MDM - Chest Pain MDM Narrative Medical decision making narrative: At the time of visit patient is sitting up on the exam stretcher. Patient appears to be nontoxic. Patient is very anxious EKG: EKG shows normal sinus rhythm with heart rate of 96 beats per minute no ST elevation or depression noted. No T-wave inversion. Labs: CBC shows white blood cell count of 6.9, H&H of 14.2 and 42, platelet counts to 63, anticoagulation studies within normal limits, D-dimer negative,, chemistry shows sodium of 138, potassium of 4.4, chloride 108, BUN of 12, creatinine 0.8, GFR greater than 60, liver function test within normal limits, troponin is negative at less than 0.012, BN peptide is 108, lipase is 28, Diagnostics: Chest x-ray shows no acute cardiopulmonary disease. Medications: Ativan 0.5 mg IV given-this brought patient's pain down to a 2/10 and patient is more calm. Blood pressure is down to 143/82-SpO2 96% on room air Plan: Patient heart score is 2. I suspect patient is having chest pain/shortness of breath due to anxiety/stress reaction. 0.5 mg of Ativan was given and this improved patient's chest pain, blood pressure, and patient is now calm. Discussed case with Dr. Reyes. Will send some alprazolam home the patient to take as needed until she can follow-up with her primary care doctor. Supportive measures were discussed with the patient and they voiced understanding discharge instructions and agrees to treatment plan. Return precautions reviewed <Filippo Trevizo APRN - Last Filed: 10/12/23 13:07> Differential Diagnosis Differential diagnosis: Likely stable angina, unstable angina pectoris, atypical chest pain, st elevation myocardial infarction, costochondritis, chest pain and other (Anxiety/stress reaction) <Filippo Trevizo APRN - Last Filed: 10/12/23 13:07> Lab Data Result diagrams: 10/12/23 12:14 10/12/23 12:14 <Filippomorris Trevizo, SENIOR LINUX SYSTEMS ADMINISTRATOR - Last Filed: 10/12/23 13:07> Labs: Lab Results 10/12/23 Range/Units 12:14 WBC 6.9 (4.5-10.0) K/mm3 RBC 4.73 (4.2-5.4) M/mm3 Hgb 14.2 (12.0-15.0) g/dL Hct 42.0 (37.0-47.0) % MCV 88.8 (80-100) fl MCH 30.0 (26-34) pg MCHC 33.8 (32-36) g/dl RDW 12.3 (11.5-14.5) % Plt Count 263 (150-375) k/mm3 MPV 11.1 H (7.4-10.4) fl Immature Gran % (Auto) 0.1 (0-0.5) % Neut % (Auto) 53.1 (45.5-73.1) % Lymph % (Auto) 38.2 (18.3-44.2) % [place] % (Auto) 5.3 (2.6-8.5) % Eos % (Auto) 2.6 (0-4.4) % Baso % (Auto) 0.7 (0.2-1.2) % Lymph # (Auto) 2.64 (0.9-3.2) K/mm3 [place] # (Auto) 0.4 (0.1-0.6) K/mm3 Eos # (Auto) 0.2 (0-0.3) K/mm3 Baso # (Auto) 0.1 (0.0-0.1) K/mm3 Abs Immat Gran (auto) 0.01 (0.00-0.031) K/mm3 Absolute Neuts (auto) 3.7 (1.3-6.7) K/mm3 Absolute Nucleated RBC 0.000 (0.0-0.012) K/mm3 Nucleated RBC % 0.0 (0.0-0.2) % PT 13.8 (11.1-14.7) Seconds INR 1.0 APTT 33.5 (22.3-36.8) Seconds D-Dimer 0.44 (<0.48) ug/mL Sodium 138 (137-145) mmol/L Potassium 4.4 (3.4-5.0) mmol/L Chloride 108 H (98-107) mmol/L Carbon Dioxide 24 (22-30) mmol/L Anion Gap 6 (4-12) mmol/L BUN 12 (7-17) mg/dL Creatinine 0.80 (0.7-1.0) mg/dL Estim Creat Clear Calc 90 ml/min Estimated GFR > 60 (59 - ) Glucose 93 (65-110) mg/dL Calcium 9.5 (8.4-10.2) mg/dL Total Bilirubin 1.7 H (0.2-1.3) mg/dL AST 25 (14-36) U/L ALT 14 (6-35) U/L Alkaline Phosphatase 77 (38-126) U/L Troponin I < 0.012 (0.000-0.034) ng/mL NT-Pro-B Natriuret Pep 108 H (19.9-100) pg/mL Total Protein 8.0 (6.3-8.2) g/dL Albumin 4.7 (3.5-5.1) g/dL Lipase 28 (23-300) U/L <Filippo Trevizo, SENIOR LINUX SYSTEMS ADMINISTRATOR - Last Filed: 10/12/23 13:07> Lab Results 10/12/23 Range/Units 12:14 WBC 6.9 (4.5-10.0) K/mm3 RBC 4.73 (4.2-5.4) M/mm3 Hgb 14.2 (12.0-15.0) g/dL Hct 42.0 (37.0-47.0) % MCV 88.8 (80-100) fl MCH 30.0 (26-34) pg MCHC 33.8 (32-36) g/dl RDW 12.3 (11.5-14.5) % Plt Count 263 (150-375) k/mm3 MPV 11.1 H (7.4-10.4) fl Immature Gran % (Auto) 0.1 (0-0.5) % Neut % (Auto) 53.1 (45.5-73.1) % Lymph % (Auto) 38.2 (18.3-44.2) % [place] % (Auto) 5.3 (2.6-8.5) % Eos % (Auto) 2.6 (0-4.4) % Baso % (Auto) 0.7 (0.2-1.2) % Lymph # (Auto) 2.64 (0.9-3.2) K/mm3 [place] # (Auto) 0.4 (0.1-0.6) K/mm3 Eos # (Auto) 0.2 (0-0.3) K/mm3 Baso # (Auto) 0.1 (0.0-0.1) K/mm3 Abs Immat Gran (auto) 0.01 (0.00-0.031) K/mm3 Absolute Neuts (auto) 3.7 (1.3-6.7) K/mm3 Absolute Nucleated RBC 0.000 (0.0-0.012) K/mm3 Nucleated RBC % 0.0 (0.0-0.2) % PT 13.8 (11.1-14.7) Seconds INR 1.0 APTT 33.5 (22.3-36.8) Seconds D-Dimer 0.44 (<0.48) ug/mL Sodium 138 (137-145) mmol/L Potassium 4.4 (3.4-5.0) mmol/L Chloride 108 H (98-107) mmol/L Carbon Dioxide 24 (22-30) mmol/L Anion Gap 6 (4-12) mmol/L BUN 12 (7-17) mg/dL Creatinine 0.80 (0.7-1.0) mg/dL Estim Creat Clear Calc 90 ml/min Estimated GFR > 60 (59 - ) Glucose 93 (65-110) mg/dL Calcium 9.5 (8.4-10.2) mg/dL Total Bilirubin 1.7 H (0.2-1.3) mg/dL AST 25 (14-36) U/L ALT 14 (6-35) U/L Alkaline Phosphatase 77 (38-126) U/L Troponin I < 0.012 (0.000-0.034) ng/mL NT-Pro-B Natriuret Pep 108 H (19.9-100) pg/mL Total Protein 8.0 (6.3-8.2) g/dL Albumin 4.7 (3.5-5.1) g/dL Lipase 28 (23-300) U/L <Chastity Reyes, MD - Last Filed: 10/12/23 13:42> Imaging Data Radiologist's impression: ITS Impressions Chest X-Ray 10/12/23 12:42 IMPRESSION: 1: NO ACUTE CARDIOPULMONARY DISEASE. <Filippo Trevizo APRN - Last Filed: 10/12/23 13:07> Discharge Plan Discharge Clinical Impression: Atypical chest pain, Anxiety as acute reaction to exceptional stress <Filippo Trevizo APRN - Last Filed: 10/12/23 13:07> Patient Disposition: Home, Self-Care <Filippo Trevizo APRN - Last Filed: 10/12/23 13:07> Condition: Stable <Filippo Trevizo APRN - Last Filed: 10/12/23 13:07> Instructions: Antibiotic Form, Chest Pain (ED), Anxiety (ED) <Filippo Trevizo APRN - Last Filed: 10/12/23 13:07> Additional Instructions: EKG, labs, and chest x-ray are all reassuring Go home and rest Increase fluids and stay well hydrated Take alprazolam every 8 hours as needed for anxiety Follow-up with your primary care doctor this week <Filippo Trevizo APRN - Last Filed: 10/12/23 13:07> Prescriptions: New alprazolam 0.25 mg tablet 0.25 mg PO TID PRN (Reason: anxiety) 7 Days Qty: 21 0RF No Action Combivent 18-103 mcg/actuation Aerosol INHALATION azithromycin [Zithromax Z-Valeriy] 250 mg tablet See Rx Instructions .ROUTE .COMPLEX Qty: 6 0RF Rx Instructions: take 500 mg today (day 1), then 250 mg for 4 days (days 2-5) prednisone 20 mg tablet 40 mg PO DAILY 5 Days Qty: 10 0RF albuterol sulfate 90 mcg/actuation HFA aerosol inhaler 2 puff INHALATION QID PRN (Reason: shortness of breath or wheezing) Qty: 8.5 0RF prednisone 20 mg tablet 40 mg PO DAILY 5 Days Qty: 10 0RF <Filippo Trevizo APRN - Last Filed: 10/12/23 13:07> Follow-up/Referrals: PHYSICIAN,CENTRIFUGAL EXTRACTOR OPERATOR [Primary Care Provider] - <Filippo Trevizo APRN - Last Filed: 10/12/23 13:07> Time of Disposition: 13:02 <Filippo Trevizo APRN - Last Filed: 10/12/23 13:07> 13:02 <Chastity Reyes MD - Last Filed: 10/12/23 13:42> Quality NIHSS Nursing Documentation ED NIHSS nursing documentation: reviewed/agree <Filippo Trevizo APRN - Last Filed: 10/12/23 13:07> HEART score for chest pain patients History: slightly suspicious <Filippo Trevizo APRN - Last Filed: 10/12/23 13:07> ECG: normal <Filippo Trevizo APRN - Last Filed: 10/12/23 13:07> Age: > 45 and < 65 years <Filippo Trevizo APRN - Last Filed: 10/12/23 13:07> Risk factors: 1 or 2 risk factors <Filippo Trevizo APRN - Last Filed: 10/12/23 13:07> Troponin: < or = to 1x normal limit <Filippo Trevizo APRN - Last Filed: 10/12/23 13:07> Heart score: 2 <Filippo Trevizo APRN - Last Filed: 10/12/23 13:07> 2 <Chastity Reyes MD - Last Filed: 10/12/23 13:42>
[2023-10-12] MEDS: LORazepam INJ (*CRX) 2 MG/ML VIAL 0.5 MG IV PUSH (12:13)
[2023-10-12 12:15] VITALS: O2SAT 96
[2023-10-12 12:21] LABS: Basophils Absolute Auto 0.1 K/mm3 (0.0-0.1); Basophils Percent Auto 0.7 % (0.2-1.2); Eosinophils Absolute Auto 0.2 K/mm3 (0-0.3); Eosinophils Percent Auto 2.6 % (0-4.4); Hemoglobin 14.2 g/dL (12.0-15.0); Immature Granulocyte Absolute 0.01 K/mm3 (0.00-0.031); Immature Granulocyte Percent A 0.1 % (0-0.5); Lymphocytes Absolute Auto 2.64 K/mm3 (0.9-3.2); Lymphocytes Percent Auto 38.2 % (18.3-44.2); Mean Corpuscular HGB Conc 33.8 g/dl (32-36); Mean Corpuscular Volume 88.8 fl (80-100); Mean Platelet Volume 11.1 fl (7.4-10.4); Monocytes Absolute Auto 0.4 K/mm3 (0.1-0.6); Monocytes Percent Auto 5.3 % (2.6-8.5); Neutrophils Absolute Auto 3.7 K/mm3 (1.3-6.7); Neutrophils Percent Auto 53.1 % (45.5-73.1); Platelet Count Result 263 k/mm3 (150-375); Red Blood Count 4.73 M/mm3 (4.2-5.4); Red Cell Distribution Width 12.3 % (11.5-14.5); White Blood Count 6.9 K/mm3 (4.5-10.0)
[2023-10-12 12:34] LABS: Alanine Aminotransferase 14 U/L (6-35); Albumin Level 4.7 g/dL (3.5-5.1); Alkaline Phosphatase 77 U/L (38-126); Anion Gap 6 mmol/L (4-12); Aspartate Amino Transferase 25 U/L (14-36); Bilirubin,Total 1.7 mg/dL (0.2-1.3); Blood Urea Nitrogen 12 mg/dL (7-17); Calcium 9.5 mg/dL (8.4-10.2); Carbon Dioxide 24 mmol/L (22-30); Chloride 108 mmol/L (98-107); Estimated CRCL calculation 90 ml/min; Estimated Glomerular Filt Rate > 60; Glucose 93 mg/dL (65-110); Lipase 28 U/L (23-300); Potassium 4.4 mmol/L (3.4-5.0); Sodium 138 mmol/L (137-145)
[2023-10-12 12:35] LABS: Prothrombin Time 13.8 Seconds (11.1-14.7)
[2023-10-12 12:36] LABS: Partial Thromboplastin Time 33.5 Seconds (22.3-36.8)
[2023-10-12 12:45] LABS: D Dimer 0.44 ug/mL (<0.48); NT Pro B Type Natriuretic Pept 108 pg/mL (19.9-100); Troponin I < 0.012 ng/mL (0.000-0.034)
[2023-10-12 13:18] VITALS: BP 143/82; PULSE 82; RESP 18; O2SAT 98
== END 2023-10-12 13:23 | disposition home or self-care (01) ==
PROVIDERS: Emergency Provider Nurse Practitioner Family
DX: R07.89 Other chest pain (principal); F43.0 Acute stress reaction; F41.9 Anxiety disorder, unspecified; J45.909 Unspecified asthma, uncomplicated; M19.90 Unspecified osteoarthritis, unspecified site; Z87.442 Personal history of urinary calculi; Z86.711 Personal history of pulmonary embolism; Z87.440 Personal history of urinary (tract) infections; Z90.710 Acquired absence of both cervix and uterus
CPT/HCPCS: 36415; 71045; 80053; 83690; 83880; 84484; 85025; 85380; 85610; 85730; 93005; 96374; 99284; J2060

== ENCOUNTER 2024-06-12 17:28 | Emergency (ER) | payer OTHER, SELFPAY ==
[2024-06-12 17:35] VITALS: BP 156/78; PULSE 93; RESP 18; TEMP 36.5; O2SAT 97
--- NOTE | 2024-06-12 17:38 | ED_ITS ---
HPI - URI/Sore Throat General Chief Complaint: Upper Respiratory Infection Stated Complaint: Sore Throat/Cough Time Seen by Provider: 06/12/24 17:40 Source: patient Mode of arrival: ambulatory Limitations: no limitations History of Present Illness HPI Narrative: Deidre is a 53-year-old female patient presenting to the clinic today with complaints of sore throat, ear pain, cough, shortness breath, and chest congest ion x3 days. She reports she is coughing up some yellow phlegm. History of asthma. Denies any chest pain. MD elicited complaint: cough, sore throat, nasal congestion and other (Shortness of breath) Related Data Home Medications ?Medication ?Instructions ?Recorded ?Confirmed ?Last Taken ?Type ipratropium 18 mcg-albuterol 103 spray inhalation 05/21/23 Unknown History mcg/actuation aerosol inhaler Allergies Allergy/AdvReac Type Severity Reaction Status Date / Time morphine Allergy Severe Unknown Verified 05/21/23 12:11 iohexol (From contrast - CT, Allergy Mild Unknown Verified 05/21/23 12:11 X-RAY) Fish Containing Products Allergy Anaphylaxis Verified 05/21/23 12:11 Review of Systems Review of Systems: Pertinent positives per HPI. Patient denies any fever, chills, rash, headache, visual changes, dizziness, cough, shortness of breath, chest pain, palpitations, nausea, vomiting, diarrhea, constipation, abdominal pain, or any urinary issues. [facility] Past Medical History Medical History PVCs (premature ventricular contractions) (history, resolved) Pulmonary embolism UTI (urinary tract infection) Influenza A Arthritis Kidney stones Hemorrhoid Migraine Asthma Surgical History Surgical History History of tubal ligation History of dilatation and curettage Previous section x3. 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 The patient has 3 children. She desires to be a full code. 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 She does not smoke. Rarely drinks. Smoking status: Never smoker Second hand tobacco smoke exposure: No Alcohol intake: never Alcohol use details: Occasional Substance use: never Substance use type: does not use Living arrangements: with family Occupation/Education: occupation Gender identity (if verbalized by the patient): Female Spiritual care concerns: No Agree to blood products: Yes Comments At the time of my signature, I reviewed and agree with the nursing past medical, surgical, social, and family history. There is no relevant family history pertinent to the patient complaint. Exam Narrative: General: Well-developed, well nourished, in no apparent distress Head: Normocephalic, atraumatic Eyes: Pupils equally round and reactive to light bilaterally, EOM intact, sclera and conjunctive clear, no discharge, lids normal Ears: TMs intact and congested, ear canals clear, no drainage, grossly hearing normal. Nose: Nares patent, clear nasal discharge, no inflammation, no sinus tenderness. Mouth: Oral pharynx without lesions or masses, good dentition, MMM. Neck: Supple, trachea midline, no enlargement of anterior or posterior cervical nodes, no thyroid masses or goiter palpable. Cardio: Regular rate and rhythm, s1 and s2 normal, no murmur appreciated. Resp: Lung sounds tight with inspiratory and expiratory wheezing, no rhonchi, rales, or rubs Course Course Emergency Course: Portions of this record may have been created with voice recognition software. Level of Care: Express Care Visit Vital Signs Vital signs: Vital Signs Temperature 36.5 C 06/12/24 17:35 Pulse Rate 93 06/12/24 17:35 Respiratory Rate 18 06/12/24 17:35 Blood Pressure 156/78 H 06/12/24 17:35 Pulse Oximetry 97 06/12/24 17:35 Oxygen Delivery Room Air 06/12/24 17:35 Temperature 36.5 C 06/12/24 17:35 Pulse Rate 93 06/12/24 17:35 Respiratory Rate 18 06/12/24 17:35 Blood Pressure 156/78 H 06/12/24 17:35 Pulse Oximetry 97 06/12/24 17:35 Oxygen Delivery Room Air 06/12/24 17:35 Vital signs reviewed MDM - URI/Sore Throat MDM Narrative Medical decision making narrative: At the time of visit patient is resting comfortably on the exam table. Patient appears to be nontoxic. Medications: DuoNeb HHN treatment was given in the clinic today. Lung aeration improved after DuoNeb treatment-some wheezing remains Plan: I suspect patient is having asthma exacerbation with sputum changes. Prescription for prednisone and azithromycin was sent to the pharmacy. Patient reports she has a brand new albuterol inhaler home. Supportive measures were discussed with the patient and they voiced understanding discharge instructions and agrees to treatment plan. Return precautions reviewed Differential Diagnosis Differential diagnosis: Likely upper respiratory infection, otitis media, sinusitis, viral infection, bronchitis, influenza, pharyngitis and other (COVID) Discharge Plan Discharge Clinical Impression: Asthma exacerbation Qualifiers: Asthma severity: unspecified severity Asthma persistence: unspecified Qualified Code(s): J45.901 - Unspecified asthma with (acute) exacerbation Patient Disposition: Home, Self-Care Condition: Stable Instructions: Antibiotic Form, Asthma (ED) Additional Instructions: Take prescription medications only as prescribed-azithromycin and prednisone Continue albuterol inhaler as prescribed Increase fluids and stay well hydrated Tylenol/motrin for pain/fever Flonase and OTC antihistamines as directed Vicks vapor rub to open sinuses Sinus rinses for congestion Cepacol spray, cough drops, throat lozenges, warm tea with honey/lemon, gargle salt water to soothe throat BRAT diet for diarrhea Clear liquids x 24 hours then advance as tolerated for nausea/vomiting Go to the ED if you develop a worsening in your condition- high fever not controlled by Tylenol or Motrin, dehydration, weakness, lethargy, shortness of breath, or chest pain. Follow up with your PCP in 3-5 days if symptoms persist. Patient Language: Kiswahili Prescriptions: New azithromycin 250 mg tablet See Rx Instructions .ROUTE .COMPLEX Qty: 6 0RF Rx Instructions: For 250 mg dose pack: take 500 mg today (day 1), then 250 mg for 4 days (days 2-5) prednisone 20 mg tablet 40 mg PO DAILY 5 Days Qty: 10 0RF No Action Combivent 18-103 mcg/actuation Aerosol INHALATION azithromycin [Zithromax Z-Valeriy] 250 mg tablet See Rx Instructions .ROUTE .COMPLEX Qty: 6 0RF Rx Instructions: take 500 mg today (day 1), then 250 mg for 4 days (days 2-5) prednisone 20 mg tablet 40 mg PO DAILY 5 Days Qty: 10 0RF albuterol sulfate 90 mcg/actuation HFA aerosol inhaler 2 puff INHALATION QID PRN (Reason: shortness of breath or wheezing) Qty: 8.5 0RF prednisone 20 mg tablet 40 mg PO DAILY 5 Days Qty: 10 0RF alprazolam 0.25 mg tablet 0.25 mg PO TID PRN (Reason: anxiety) 7 Days Qty: 21 0RF Follow-up/Referrals: Jackie,IMAN Peraza [Primary Care Provider] - Time of Disposition: 18:05 Quality NIHSS Nursing Documentation ED NIHSS nursing documentation: reviewed/agree
[2024-06-12 17:40] VITALS: PULSE 93; RESP 18; O2SAT 97
[2024-06-12] MEDS: IPRATROPIUM 0.5 MG/ALBUTEROL SULFATE 2.5 MG AMPUL.NEB 3 ML INHALATION (17:50)
== END 2024-06-12 18:05 | disposition home or self-care (01) ==
PROVIDERS: Emergency Provider Nurse Practitioner Family; PCP Physician Assistant
DX: J45.901 Unspecified asthma with (acute) exacerbation (principal); Z86.711 Personal history of pulmonary embolism; M19.90 Unspecified osteoarthritis, unspecified site
CPT/HCPCS: 94664; 99213; G0463

== ENCOUNTER 2024-10-15 09:46 | Emergency (ER) | payer OTHER, SELFPAY ==
[2024-10-15 09:56] VITALS: BP 146/79; PULSE 85; RESP 16; TEMP 36.8; O2SAT 97
--- NOTE | 2024-10-15 10:19 | PC.NURSE ---
unable to void. given water to drink
--- NOTE | 2024-10-15 10:50 | ED.FEMALEGU ---
HPI - Female Genitourinary General Chief complaint: Urogenital-Female Stated complaint: UTI Time Seen by Provider: 10/15/24 10:40 Source: patient and RN notes reviewed Mode of arrival: ambulatory Limitations: no limitations History of Present Illness HPI Narrative: 53-year-old female presents Express Care complaining of urinary symptoms for 3 days. Patient says she has burning with urination, foul-smelling urine, increased frequency, and cloudy urine. Patient denies any fevers, body aches, chills, nausea, vomiting, hematuria, vaginal bleeding, vaginal discharge, or vaginal irritation. She denies any abdominal pain,, flank pain, or back pain. Patient has a history of urinary tract infections. Patient has not used anything [id number] for symptom treatment. Related Data Home Medications ?Medication ?Instructions ?Recorded ?Confirmed ?Last Taken ?Type ipratropium 18 mcg-albuterol 103 spray inhalation 05/21/23 Unknown History mcg/actuation aerosol inhaler amlodipine 10 mg tablet 10 mg PO DAILY 10/15/24 10/15/24 Unknown History Allergies Allergy/AdvReac Type Severity Reaction Status Date / Time morphine Allergy Severe Unknown Verified 10/15/24 10:16 iohexol (From contrast - CT, Allergy Mild Unknown Verified 10/15/24 10:16 X-RAY) Fish Containing Products Allergy Anaphylaxis Verified 10/15/24 10:16 Review of Systems Review of Systems: CONSTITUTIONAL: Denies fever, chills, or sweats. EYES: Denies visual changes, redness, or discharge. ENT: Denies rhinorrhea, congestion, sore throat, or otalgia. CARDIOVASCULAR: Denies chest pain, palpitations, or edema. RESPIRATORY: Denies cough or dyspnea. GASTROINTESTINAL: Denies abdominal pain, nausea, vomiting, or diarrhea. GENITOURINARY: Positive for dysuria, foul smelling urine, increased frequency. Denies hematuria, vaginal bleeding, vaginal discharge. SKIN: Denies rash or itching. MUSCULOSKELETAL: Denies back pain, joint pain, or myalgia. NEUROLOGIC: Denies headache, numbness, or weakness. PSYCHIATRIC: Denies anxiety or depression. All other systems reviewed are negative, except as documented in HPI. [facility] Past Medical History Medical History PVCs (premature ventricular contractions) (history, resolved) Pulmonary embolism UTI (urinary tract infection) Influenza A Arthritis Kidney stones Hemorrhoid Migraine Asthma Surgical History Surgical History History of tubal ligation History of dilatation and curettage Previous section x3. History of hysterectomy History of surgery on arm Left arm reconstruction x4 Family History Family History Mother Hypertension Heart attack Father Heart attack Grandparent Heart attack Social History Social History Social History: The patient is and her is a durable power document review attorney for healthcare. The patient has 3 children. She desires to be a full code. 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 She does not smoke. Rarely drinks. Smoking status: Never smoker Second hand tobacco smoke exposure: No Alcohol intake: never Alcohol use details: Occasional Substance use: never Substance use type: does not use Living arrangements: with family Occupation/Education: occupation Gender identity (if verbalized by the patient): Female Spiritual care concerns: No Agree to blood products: Yes Comments At the time of my signature, I reviewed and agree with the nursing past medical, surgical, social, and family history. There is no relevant family history pertinent to the patient complaint. Exam Narrative: GENERAL: This is a well-nourished, well-developed adult, in no apparent distress. They are non ill-appearing, nontoxic appearing. HEAD: normocephalic, atraumatic. EYES: Sclera clear/white. Conjunctiva normal bilaterally. Vision is grossly intact. Extraocular movement intact EARS: External ears normal, Hearing grossly intact. NOSE: External nose normal THROAT: Mucous membranes moist, NECK: Normal range of motion CARDIOVASCULAR: Regular rate and rhythm without murmurs, gallops, or rubs. RESPIRATORY: Clear to auscultation. Breath sounds equal bilaterally. No wheezes, rales, or rhonchi. GASTROINTESTINAL: Abdomen soft, non-tender, nondistended. Bowel sounds are active. No hepato-splenomegaly, or palpable masses. No guarding. SKIN: warm, Dry, intact with no suspicious lesions or rash, good texture and turgor. NEURO: awake, alert, and oriented to person, place and time. There were no obvious focal neurologic abnormalities. EXTREMITIES: No joint tenderness, effusion, or edema noted. BACK: Nontender without deformity. No CVA tenderness. Course Course Emergency Course: Patient is aware of diagnosis, understands and agrees to treatment plan. Anticipatory guidance given. Patient agrees to follow-up as directed and is aware of reasons to seek care at the emergency department. Portions of this record may have been created with voice recognition software Level of Care: Express Care Visit Vital Signs Vital signs: Vital Signs Temperature 98.3 F 10/15/24 09:56 Pulse Rate 85 10/15/24 09:56 Respiratory Rate 16 10/15/24 09:56 Blood Pressure 146/79 H 10/15/24 09:56 Pulse Oximetry 97 10/15/24 09:56 Oxygen Delivery Room Air 10/15/24 09:56 Temperature 98.3 F 10/15/24 09:56 Pulse Rate 85 10/15/24 09:56 Respiratory Rate 16 10/15/24 09:56 Blood Pressure 146/79 H 10/15/24 09:56 Pulse Oximetry 97 10/15/24 09:56 Oxygen Delivery Room Air 10/15/24 09:56 Reviewed MDM - Female Genitourinary MDM Narrative Medical decision making narrative: Urine dipstick in patient's symptoms are consistent with urinary tract infection. Urine culture pending. Previous culture showed Citrobacter koseri, I will go ahead and treat with ciprofloxacin for previous culture results. Discussed physical exam findings. Advised supportive measures and signs/symptoms to go to the ER. Pt is appropriate for outpt treatment and f/u. Differential Diagnosis Differential diagnosis: Likely urinary tract infection, cystitis and other (Pyelonephritis) Lab Data Attestation: I reviewed the patient's lab results. Critical Care Time Critical Care Time Critical Care Time: No Discharge Plan Discharge Clinical Impression: UTI (urinary tract infection) Patient Disposition: Home Condition: Stable Instructions: Antibiotic Form Additional Instructions: Take the antibiotic as prescribed The urine will be sent of for a culture to identify what type of bacteria is causing your infection. If the culture shows that the antibiotic will not get rid of your infection, you will be notified and a new antibiotic will be called in for you. Increase water intake you will need to follow up with your PCP, call to schedule an appointment. Go to the ER for any worsening symptoms or concerns Patient Language: Slovenian Prescriptions: New ciprofloxacin HCl 250 mg tablet 250 mg PO Q12H 3 Days Qty: 6 0RF No Action ipratropium-albuterol 18-103 mcg/actuation Aerosol INHALATION albuterol sulfate 90 mcg/actuation HFA aerosol inhaler 2 puff INHALATION QID PRN (Reason: shortness of breath or wheezing) Qty: 8.5 0RF amlodipine 10 mg tablet 10 mg PO DAILY alprazolam 0.25 mg tablet 0.25 mg PO TID PRN (Reason: anxiety) 7 Days Qty: 21 0RF Follow-up/Referrals: Jackie,IMAN Peraza [Primary Care Provider] - Time of Disposition: 10:44
[2024-10-15 11:04] LABS: EDUAAPPEAR Cloudy; EDUABILI Negative (Negative); EDUABLOOD 3+ (Negative); EDUACOLOR1 Yellow; EDUAGLUCOSE Negative (Negative); EDUAKETONE Negative (Negative); EDUALEUKO 2+ (Negative); EDUANITRATE Negative (Negative); EDUAPROTEIN Negative (Negative)
== END 2024-10-15 11:05 | disposition home or self-care (01) ==
PROVIDERS: PCP Physician Assistant
DX: N39.0 Urinary tract infection, site not specified (principal); M19.90 Unspecified osteoarthritis, unspecified site; J45.909 Unspecified asthma, uncomplicated; Z86.711 Personal history of pulmonary embolism
CPT/HCPCS: 81003; 87086; 87186; 99213; G0463